=== PATIENT | male | born 1955 | race Caucasian/White ===

== ENCOUNTER 2017-01-12 06:05 | Inpatient (IN) | payer MEDICARE, OTHER, MEDICAID ==
[2017-01-12] VITALS (11 sets, daily range): BP systolic 97–137; BP diastolic 46–74; PULSE 107–119; RESP 25–38; O2SAT 92–100
[~2017-01-12] VITALS: Ht 175.3 cm; Wt 91.4 kg
[~2017-01-12 06:05] MED LIST: ACET650S13 RC; ACET650T50 PO; ATOR20TA PO; BISA10SU61 RC; CALC-881 PO; CLIN-78 PO; DEP500A PO; LACT1CAP26 PO; LIDO700A10 TP; MAGN400O4 PO; MV-M1TAB20 PO; OMEG1CAP25 PO; OXYC-284 PO; OXYC-474 PO; PHEN32.417 PO; RANI150T13 PO; SENN8.6C6 PO; SERT20OR PO; TAMS0.4C98 PO; [UNRECOGNIZED DRUG - CODE] PO; [UNRECOGNIZED DRUG - CODE] PO; [UNRECOGNIZED DRUG - CODE] PO
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
[2017-01-12] MEDS ORDERED: 0.9% Sodium Chloride 1,000 ML IV ONE (06:25)
[2017-01-12 06:27] LABS: BASOPHILS % (AUTO) 0.1 % (0-3); EOSINOPHILS % (AUTO) 0 % (0-5); MONOCYTES % (AUTO) 9.7 % (4-12); Mean Corpuscular Hemoglobin 33.6 pg (27.0-35.0); Mean Corpuscular Volume 98.2 fL (81-100); NEUTROPHILS % (AUTO) 81.9 % (40-74); Platelet Count 233 bil/L (150-400)
[2017-01-12 06:50] LABS: TROPONIN T 0.01 ug/L (0.0-0.011)
[2017-01-12] MEDS ORDERED: Vancomycin Dose per Pharmacist XX ONE (07:30)
[2017-01-12] MEDS ORDERED: levoFLOXacin Inj 750 MG in IV Premix 1 EACH IV ONE (07:30)
[2017-01-12] MEDS ORDERED: Cefepime Inj 2,000 MG in Dextrose 5% Minibag Plus 100 ML IV ONE (07:30)
[2017-01-12] MEDS ORDERED: Vancomycin Inj 1,750 MG in 0.9% Sodium Chloride 500 ML IV ONE (08:05)
[2017-01-12 08:20] LABS: APPEARANCE,URINE HAZY (CLEAR,HAZY); COLOR,URINE DARK YELLOW (YELLOW); OCCULT BLOOD,URINE MODERATE (NEGATIVE); PH,URINE 5.5 (5.0-8.0)
[2017-01-12 08:22] LABS: UROBILINOGEN,URINE NORMAL (NORMAL)
--- NOTE | 2017-01-12 10:33 | DRSVH ---
PROCEDURE: CT ANGIO CHEST PULMONARY EMBOLISM ([id number]) INDICATIONS: Hypoxia, SOB TECHNIQUE: After the administration of intravenous contrast, 2 mm thick sections acquired from the pulmonary api raghu to the posterior costophrenic angles. 3-dimensional maximum intensity projection (MIP) coronal a nd sagittal reformats were then acquired through the thorax. For radiation dose reduction, the follo wing was used: automated exposure control, adjustment of mA and/or kV according to patient size. COMPARISON: [facility], CR, CHEST 1VW (PORTABLE), 04/17/2014, 12:17. [facility], CR, XR CHEST 1VW (PORTABLE), 01/12/2017, 6:17. FINDINGS: Image quality: Suboptimal examination with significant respiratory motion artifacts. Pulmonary arteries: Pulmonary arteries are normal in size, and demonstrate no definitive intralumina l filling defects to suggest central pulmonary embolism. Lungs and pleura: There are bilateral groundglass infiltrates. Bibasilar atelectasis. No pleural eff usions or pneumothorax. Central and peripheral airways are patent. Mediastinum: Heart size is normal, without pericardial effusion. No mediastinal or hilar adenopathy . Thoracic aorta is normal in caliber and enhancement. Esophagus is normal in caliber, without hiat al hernia. Bones and chest wall: No suspicious bony lesions. Ribs and thoracic spine appear intact throughout. Thyroid gland is normal. No axillary or supraclavicular adenopathy. Abdomen: Visualized upper abdominal solid organs appear normal in the early arterial phase of enhanc ement. IMPRESSION: 1. Limited examination due to respiratory motion artifact. No definitive central pulmonary emboli. 2. Bilateral groundglass infiltrates consistent with pneumonitis, pneumonia or pulmonary edema. 3. Bibasilar atelectasis. Dictated by: Jeremiah Mehta M.D. on 01/12/2017 at 10:06 Approved by: Jeremiah Mehta M.D. on 01/12/2017 at 10:32
[2017-01-12] MEDS ORDERED: Alum-Mag Hydrox-Simeth 30 mL Suspension PO PRN ×2 (12:05→15:05)
[2017-01-12] MEDS ORDERED: Ondansetron 2 mg/mL 2 mL Inj IVPUSH PRN ×2 (12:05→15:05)
[2017-01-12] MEDS: 0.9% Sodium Chloride 1,000 ML IV SCH (13:58)
--- NOTE | 2017-01-12 14:43 | DRSVH ---
PROCEDURE: X-RAY CHEST ONE VIEW, PORTABLE ([id number]) INDICATIONS: fever, right sided chest pain, hypoxia TECHNIQUE: One view of the chest was acquired. COMPARISON: [facility], , CHEST 1VW (PORTABLE), 04/17/2014, 12:17. FINDINGS: Surgical changes and devices: Cholecystectomy clips. Lungs and pleura: Lung volumes are low. Perihilar and basilar interstitial and air space opacities n oted, left greater than. No pneumothorax. Mediastinum: Mediastinal contours appear normal. Heart size is normal. Bones and chest wall: No suspicious bony lesions. Overlying soft tissues appear unremarkable. IMPRESSION: Expiratory chest demonstrating bronchovascular crowding and bilateral pulmonary opacities . Developing pulmonary edema and/or bilateral pneumonia cannot be excluded and clinical correlation is recommended. Dictated by: Victorino Ford [facility] Interpreted: Kevan Torrez MD on 01/12/2017 at 9:42 Approved by: Kevan Torrez M.D. on 01/12/2017 at 14:41
[2017-01-12] MEDS ORDERED: Polyethylene Glycol (PEG) 17 Gm Powder PO PRN (15:05)
[2017-01-12] MEDS ORDERED: Cefepime 2,000 mg/100 mL D5W Minibag Plus IV ONE ×2 (15:15)
--- NOTE | 2017-01-12 16:06 | PCM.HPMED ---
Subjective Date of Service Jan 12, 2017 Primary Provider: Admitting Physician: Jaylen Aldana MD Primary Care Physician: Bora Mcdowell MD Attending Physician: Jaylen Aldana MD Admit Status: From the Emergency Department, Full Admit, [facility] Telemetry Chief Complaint: Confusion, fever and right-sided chest pain. History of Present Illness: This is a 61-year-old gentleman with a history of traumatic brain injury who is limited ability to communicate at baseline and today. The patient says of [facility] for the last 9 years, residential facility. He apparently was noted to be less communicative and more lethargic as well as having a fever noting some right sided chest pain. He was brought to the emergency department by ambulance. They noted him to have hypoxia and a fever as well. No further history is obtainable in the emergency department because of the patient's mental status. He was however febrile, noted to have bilateral basal opacities on chest CT consistent with pneumonia, and have evidence of urinary tract infection. He was given antibiotics. The resuscitation was started. He was not hypotensive. The patient is seen on the [place] with mother and father. He is not really able to participate in any way other than given a thumbs up to note understanding of the general labs. They note that he is appropriate for BiPAP if needed fluids and IV antibiotics. They would not want heroic measures, invasive procedures or ICU level care including mechanical ventilation or intubation. Other subjective is not obtainable due to his mental status. Review of Systems: Review of systems is not obtainable due to mental status. Allergies Coded Allergies: Penicillins (Verified Allergy, Unknown, 01/12/17) niacin (Verified Allergy, Unknown, 01/12/17) Home Medications Atorvastatin (Lipitor) 20 Mg Tablet 20 MG PO HS Calcium Carb & Cit/Vitamin D3 (Calcium + Vitamin D3 Caplet) 1 Each Tablet.er 1 EACH PO BID Calcium - Vitamin D3 [id number] BID Clindamycin (Clindamycin) 300 Mg Capsule 300 MG PO QID Divalproex DR (Depakote DR) 500 Mg Tabec 1,000 MG PO BID Swallowed whole without chewing to avoid local irritation of the mouth and throat. Ibuprofen (Ibuprofen Ib) 200 Mg Tablet 600 MG PO TID Lactobacillus Acidophilus (Acidophilus) 1 Each Capsule 2 CAP PO BID Lidocaine (Lidoderm) 700 Mg Adh..patch 1 PATCH TP BID Lidoderm Patch 5% Topically BID to Right Shoulder 12hr on and 12 hr off. Multivitamin (Multiple Vitamins) 1 Each Tablet 1 EACH PO DAILY Mv-Mn/Iron/FA/Herbal Cmplx#190 (Vitamin D3 Complete Caplet) 1 Each Tablet 200 IU PO DAILY Nutritional Supplement (Resource 2.0) 237 Ml Liquid 60 ML PO BID Resource 2.0 Liquid Nutritional suppliement BID. Crum-3 Fatty Acids/Fish Oil (Crum 3 Fish Oil Softgel) 1 Each Capsule.dr 1 EACH PO BID Phenobarbital (Phenobarbital) 32.4 Mg Tablet 48.6 MG PO HS Ranitidine HCl (Zantac) 150 Mg Tablet 150 MG PO DAILY Sennosides (Senna) 8.6 Mg Capsule 3 TAB PO HS Hold for Loose stools Sertraline HCl (Zoloft) 20 Mg/1 Ml Oral.conc 100 MG PO DAILY Tamsulosin (Flomax) 0.4 Mg Capsule 0.4 MG PO HS Scheduled PRN Acetaminophen (Acetaminophen) 650 Mg Tablet.er 650 MG PO Q4 PRN PRN For Pain Acetaminophen (Acetaminophen Suppository) 650 Mg Supp.rect 650 MG RC Q4 PRN PRN For Pain Bisacodyl (Dulcolax Rectal) 10 Mg Supp.rect 10 MG RC DAILY PRN PRN For Constipation Magnesium Hydroxide (Milk of Magnesia) 400 Mg/5 Ml Oral.susp 30 ML PO DAILY PRN PRN For Constipation Oxycodone (Roxicodone) 5 Mg Tablet 7.5 MG PO Q4H PRN PRN For Pain Oxycodone HCl/Acetaminophen 5-325 (Percocet 5-325) 1 Each Tablet 1 EACH PO Q4 PRN PRN For Pain PMH Tramatic brain injury, 30 years ago. Essential hypertension Surgical History Unobtainable Family History Unobtainable due to mental status Social History Occupation: none Hx Alcohol Use: No Hx Substance Use: No Hx Tobacco Use: No Smoking Status: Former Smoker Living Arrangement: [facility] Exam Vital Signs Vital Sign - Last Date Time Temp Pulse Resp B/P Pulse Ox O2 Delivery O2 Flow Rate FiO2 01/12/17 13:24 38.2 119 38 121/73 94 Nasal Cannula 6.00 Intake and Output 01/11/17 01/11/17 01/12/17 Cumulative From/Thru 15:00 23:00 07:00 01/12/17 06:41 - 01/12/17 06:41 Intake Total 1000 ml 1000 ml Balance 1000 ml 1000 ml Intake IV Total 1000 ml 1000 ml Exam Arousable, denies pain. Comfortable. Not really able to speak. Gives thumbs up. Normal skull. Except evidence of previous trauma was some deformity. Normal nose and ears. Anicteric sclera, symmetric pupils Oropharynx is unremarkable, no facial droop. Neck is supple, normal thyroid. No adenopathy. Lungs are clear, normal effort rate. Heart is regular without murmur gallop or rub. Abdomen soft, nondistended or tender. Extremities are free of pedal edema. Good radial and pedal pulses. Skin is free of rash, lesions. No petechiae or ecchymosis. Joints are grossly normal. Cranial nerves are grossly normal. Patient moves all extremities without difficulty.. Normal muscular tone. Lab and Diagnostics Labs White count 21.6. Creatinine is 1.45. BNP is 57. Pro-calcitonin 0.96. Result Diagram: 01/12/17 0000 01/12/17 0000 X-Rays, CTs and MRIs PROCEDURE: CT ANGIO CHEST PULMONARY EMBOLISM ([id number]) INDICATIONS: Hypoxia, SOB TECHNIQUE: After the administration of intravenous contrast, 2 mm thick sections acquired from the pulmonary apices to the posterior costophrenic angles. 3-dimensional maximum intensity projection (MIP) coronal and sagittal reformats were then acquired through the thorax. For radiation dose reduction, the following was used: automated exposure control, adjustment of mA and/or kV according to patient size. COMPARISON: [facility], CR, CHEST 1VW (PORTABLE), 04/17/2014, 12: 17. [facility], CR, XR CHEST 1VW (PORTABLE), 01/12/2017, 6:17. FINDINGS: Image quality: Suboptimal examination with significant respiratory motion artifacts. Pulmonary arteries: Pulmonary arteries are normal in size, and demonstrate no definitive intraluminal filling defects to suggest central pulmonary embolism. Lungs and pleura: There are bilateral groundglass infiltrates. Bibasilar atelectasis. No pleural effusions or pneumothorax. Central and peripheral airways are patent. Mediastinum: Heart size is normal, without pericardial effusion. No mediastinal or hilar adenopathy. Thoracic aorta is normal in caliber and enhancement. Esophagus is normal in caliber, without hiatal hernia. Bones and chest wall: No suspicious bony lesions. Ribs and thoracic spine appear intact throughout. Thyroid gland is normal. No axillary or supraclavicular adenopathy. Abdomen: Visualized upper abdominal solid organs appear normal in the early arterial phase of enhancement. IMPRESSION: 1. Limited examination due to respiratory motion artifact. No definitive central pulmonary emboli. 2. Bilateral groundglass infiltrates consistent with pneumonitis, pneumonia or pulmonary edema. 3. Bibasilar atelectasis. Dictated by: Jeremiah Mehta M.D. on 01/12/2017 at 10:06 Approved by: Jeremiah Mehta M.D. on 01/12/2017 at 10:32 Chest XRay: MPRESSION: Expiratory chest demonstrating bronchovascular crowding and bilateral pulmonary opacities. Developing pulmonary edema and/or bilateral pneumonia cannot be excluded and clinical correlation is recommended. Dictated by: Victorino Ford RRA Interpreted: Kevan Torrez MD on 01/12/2017 at 9: 42 Approved by: Kevan Torrez M.D. on 01/12/2017 at 14:41 Assessment & Plan #. Sepsis, POA and active. SIRS criteria include a white count of 21.6, T38.2 and altered mental status. Source of infection as both a urinary infection as well as a pneumonia. Plan is check lactate, fluid resuscitation and. Parenteral antibiotics to cover empirically. Community-acquired pneumonia, POA versus HCAP. Active. Plan is to cover with broad-spectrum antibiotics and obtain nares for MRSA as well as blood cultures Pyelonephritis, POA and active. Plan is antibiotics and urine culture Hypertension, POA. Plan is to hold usual medications and fluid resuscitate. Patient is DO NOT RESUSCITATE, no intubation or feeding tube. The patient has chosen to eat given an aspiration risk knowing that there is a chance of pneumonia. He is appropriate per family for IV fluids and IV Avelox as well as BiPAP if necessary. He is admitted to inpatient status with a 2 night length of stay is anticipated Resuscitation Status: DNR/DNI:Do Not Resuscitate/Intubate Time spent 40 minutes Kael Wayne MD Jan 12, 2017 16:06
--- NOTE | 2017-01-12 18:20 | NUR ---
Admit note/Febrile Patient alert, nonverbal, able to communicate with hands and occassional words. Patient oriented per sister (Linda SCHAEFER). Temp 38.2 this afternoon, tele SR-ST RR 28-38 min. Patient oriented to soft touch call light, tv. phone and poc but needs assistance and reminders. Q2 hr turns, incont urine and stool but does ask for bedpan and urinal as well. Skin intact with redness in bilat groins, calmoseptine applied PRN.
[2017-01-12] MEDS ORDERED: Acetaminophen IV 1,000 MG in IV Premix 1 EACH IV PRN (22:00)
[2017-01-13] VITALS (9 sets, daily range): BP systolic 117–161; BP diastolic 65–89; PULSE 105–116; RESP 22–28; O2SAT 92–94
[2017-01-13] MEDS: 0.9% Sodium Chloride 1,000 ML IV SCH ×3 (00:20→16:59)
[2017-01-13] MEDS: Cefepime Inj 1,000 MG in Dextrose 5% Minibag Plus 50 ML IV SCH ×3 (00:21→16:59)
[2017-01-13 03:41] LABS: EOSINOPHILS % (AUTO) 0 % (0-5); Mean Corpuscular Hemoglobin 34.5 pg (27.0-35.0); Mean Corpuscular Volume 100.8 fL (81-100); Platelet Count 166 bil/L (150-400)
[2017-01-13 04:20] LABS: BASOPHILS % (AUTO) 0 % (0-3); MONOCYTES % (AUTO) 6 % (4-12); NEUTROPHILS % (AUTO) 81 % (40-74)
--- NOTE | 2017-01-13 04:58 | NUR ---
FEBRILE Patient with fever over night, presenting as tachy, increased needs for O2, and restless. New orders obtained for IV tylenol, which appeared to make him more comfortable. Q2h turns. Had 2BMs. Patient able to communicate his needs via spelling with his fingers and mumbling. Will continue to monitor.
[2017-01-13] MEDS ORDERED: SERT25TA2 PO (11:45)
[2017-01-13] MEDS ORDERED: CALC-72 PO (11:45)
[2017-01-13] MEDS ORDERED: AMLO10TA3 PO (11:45)
[2017-01-13] MEDS ORDERED: LISI10TA PO (11:45)
[2017-01-13] MEDS ORDERED: DEP500A PO (11:45)
[2017-01-13] MEDS ORDERED: SENN-133 PO (11:45)
[2017-01-13] MEDS ORDERED: PHEN64.8 PO (11:45)
[2017-01-13] MEDS ORDERED: ATOR40TA69 PO (11:45)
[2017-01-13] MEDS ORDERED: POLY1DRO BOTH_EYES (11:45)
[2017-01-13] MEDS ORDERED: MULT-1018 PO (11:53)
[2017-01-13] MEDS ORDERED: RANI150T11 PO (11:53)
[2017-01-13] MEDS ORDERED: ACET325T51 PO (11:53)
[2017-01-13] MEDS ORDERED: ACET325C PR (12:02)
--- NOTE | 2017-01-13 13:04 | PCM.PNMED ---
Subjective Date of Service Jan 13, 2017 Subjective The patient is not verbalizing today but does give a thumbs up when asked if she is breathing okay. He also indicates that he feels better and is having no pain. More comprehensive subjective or review systems are not obtainable. Patient is not verbal today. He does have a history of chronic brain injury. Now overnight events noted. Exam Vital Signs Vital Sign - Last Date Time Temp Pulse Resp B/P Pulse Ox O2 Delivery O2 Flow Rate FiO2 01/13/17 10:14 109 01/13/17 08:18 37.8 28 135/65 94 Nasal Cannula 2.50 Intake and Output 01/12/17 01/12/17 01/13/17 Cumulative From/Thru 15:00 23:00 07:00 01/12/17 06:41 - 01/13/17 06:01 Intake Total 981 ml 1264 ml 3245 ml Output Total 1800 ml 1800 ml Balance -819 ml 1264 ml 1445 ml Intake Oral 600 ml 600 ml IV Total 381 ml 1264 ml 2645 ml Output Urine Total 1800 ml 1800 ml Exam Awake, he is fairly comfortable. He does have some tachypnea. Anicteric sclera. Lungs are clear with increased rate and effort. Heart is regular without murmur gallop or rub Abdomen soft nontender, flat Extremities are free of edema. Skin is free of rash or lesions. IVs and Medications Medications Reviewed: Medications were reviewed in detail Lab and Diagnostics Result Diagram: 01/13/17 0325 01/13/17 032 X-Rays, CTs and MRIs PROCEDURE: CT ANGIO CHEST PULMONARY EMBOLISM ([id number]) INDICATIONS: Hypoxia, SOB TECHNIQUE: After the administration of intravenous contrast, 2 mm thick sections acquired from the pulmonary apices to the posterior costophrenic angles. 3-dimensional maximum intensity projection (MIP) coronal and sagittal reformats were then acquired through the thorax. For radiation dose reduction, the following was used: automated exposure control, adjustment of mA and/or kV according to patient size. COMPARISON: [facility], , CHEST 1VW (PORTABLE), 04/17/2014, 12: 17. [facility], , XR CHEST 1VW (PORTABLE), 01/12/2017, 6:17. FINDINGS: Image quality: Suboptimal examination with significant respiratory motion artifacts. Pulmonary arteries: Pulmonary arteries are normal in size, and demonstrate no definitive intraluminal filling defects to suggest central pulmonary embolism. Lungs and pleura: There are bilateral groundglass infiltrates. Bibasilar atelectasis. No pleural effusions or pneumothorax. Central and peripheral airways are patent. Mediastinum: Heart size is normal, without pericardial effusion. No mediastinal or hilar adenopathy. Thoracic aorta is normal in caliber and enhancement. Esophagus is normal in caliber, without hiatal hernia. Bones and chest wall: No suspicious bony lesions. Ribs and thoracic spine appear intact throughout. Thyroid gland is normal. No axillary or supraclavicular adenopathy. Abdomen: Visualized upper abdominal solid organs appear normal in the early arterial phase of enhancement. IMPRESSION: 1. Limited examination due to respiratory motion artifact. No definitive central pulmonary emboli. 2. Bilateral groundglass infiltrates consistent with pneumonitis, pneumonia or pulmonary edema. 3. Bibasilar atelectasis. Dictated by: Jeremiah Mehta M.D. on 01/12/2017 at 10:06 Approved by: Jeremiah Mehta M.D. on 01/12/2017 at 10:32 Chest XRay: MPRESSION: Expiratory chest demonstrating bronchovascular crowding and bilateral pulmonary opacities. Developing pulmonary edema and/or bilateral pneumonia cannot be excluded and clinical correlation is recommended. Dictated by: Victorino Ford [facility] Interpreted: Kevan Torrez MD on 01/12/2017 at 9: 42 Approved by: Kevan Torrez M.D. on 01/12/2017 at 14:41 Assessment & Plan #. Sepsis, POA and improved. SIRS criteria include a white count of 21.6, T38.2 and altered mental status met at time of admit. Source of infection as both a urinary infection as well as a pneumonia. Continue IVF as well as empiric antibiotics. #. Probable aspiration pneumonia, POA AND ACTIVE. Active. Plan is to cover with broad-spectrum antibiotics (cefepime) . Nares MRSA negative. #. Pyelonephritis, POA and active. Plan is antibiotics and urine culture reveals E. coli with sensitivities pending. #. Hypertension, POA and stable. Plan is to hold usual medications and fluid resuscitate. #. Remote traumatic brain injury, POA and stable. Patient is DO NOT RESUSCITATE, no intubation or feeding tube. The patient has chosen to eat given an aspiration risk knowing that there is a chance of pneumonia. He is appropriate per family for IV fluids and IV Avelox as well as BiPAP if necessary. He is admitted to inpatient status with a 2 night length of stay is anticipated Resuscitation Status: DNR/DNI:Do Not Resuscitate/Intubate Kael Wayne MD Jan 13, 2017 13:04
--- NOTE | 2017-01-13 13:36 | NUR ---
Social Work: Initial Assessment/Multidisciplinary Rounds D: Per EMR review, pt is a 61 year old non-verbal, male admitted for Sepsis. Pt is Medicare with [employer] Supplement; Pt has no LTC insurance or VA benefits. PCP is Bora Mcdowell MD. NOK is Linda Burdick, sister [phone]. Advanced directives completed and on file. Readmit score is high, 4/8. Pt discussed in multidisciplinary rounds; pt is a 9 year resident at [facility]. Pt is almost totally dependent for care and has no capacity for self-care. [employer] spoke with Shyla Gutierrez membership coordinator at [facility]. She states that the patient is w/c bound at baseline and requires 1PA for transfers. Pt requires almost total assistance for ADLs except for feeding. They are able to accept the patient back when he is medically stable; they are requesting access to follow along with care. [employer] will provide access once attending provider places CM order for SNF placement. t/c to the patient's sister/DPOA to complete initial assessment. Sw role explained, contact information provided and discharge planning checklist left at bedside. She confirms the aforementioned information is correct and that she intends for the patient to return to [facility]. She has no concerns about his care. A: Pt who is almost totally dependent for care at [facility]. P: Anticipate pt to discharge back to [facility] once he is medically stable; [employer] to continue to follow to assess for unmet discharge needs. RAYMOND Rodriguez Addendum: 01/13/17 at 1342 by MAC MICHELE Amended: Links added.
--- NOTE | 2017-01-13 14:19 | PCM.ADCARE ---
Advance Care Planning Note Purpose of Encounter: To delineate level of care and resuscitation wishes. Parties in Attendance: Mother and father Decisional Capacity: The patient is decisional at baseline per the report but because of acute encephalopathy is not decisional or able to participate at the time of this conversation. Subjective: The patient is nonverbal at the time of admission because of acute encephalopathy. Objective: He appears to be comfortable but is tachypneic. Lungs are clear with increased rate and effort. Heart is regular without murmur Abdomen soft. Extremities are free of edema. Goals of Care Determinations: DO NOT RESUSCITATE DO NOT INTUBATE No invasive procedures IV fluids, IV antibiotics, typical medical care, and noninvasive ventilation are all permissible. Plan: DNR/DNI. BiPAP if needed We will continue with IV antibiotics and IV fluids for fluid resuscitation. Patient has clearly stated in the past that he will not use a feeding tube and will continue to eat in spite of knowing he has an aspiration risk and a chance of adverse outcome from aspiration pneumonia. CODE STATUS: DO NOT RESUSCITATE Time Spent Adv.Care Plannin minutes Adv. Care Plan Documenation: As above Kael Wayne MD Jan 13, 2017 14:19
--- NOTE | 2017-01-13 17:32 | NUR ---
spiritual care: pt request caring visit/conversational. Pt eloisa shared basics about pt's abilities. Though non verbal, she said he understands all and favors rt side for hearing. Pt responded with thumbs up and pointing in simple conversation. Pt agreeable for eucharistic visitors during his hospital stay.
[2017-01-14] VITALS (9 sets, daily range): BP systolic 133–166; BP diastolic 73–85; PULSE 75–111; RESP 20–28; O2SAT 89–96
[2017-01-14] MEDS ORDERED: CEFEPIME IV SCH (00:30)
[2017-01-14] MEDS ORDERED: DEXTROSE 5% IV SCH (00:30)
[2017-01-14] MEDS: 0.9% Sodium Chloride 1,000 ML IV SCH ×3 (00:35→21:51)
--- NOTE | 2017-01-14 05:40 | NUR ---
Resp/Mentation Patient did well on 2.5L O2 via NC this shift, sats remained in the low 90's this shift, resting well this AM, incontinent of urine and stool multiple times, communicating with hand gestures this shift, no distress noted, slight increase of breathing with turns but resting and calm within a few minutes, oral temp WNL but slight increased temp auxiliary, skin hot to touch, will continue to monitor, receiving NS @100ml/hr. Addendum: 01/14/17 at 0545 by DELIO GASPAR RN Amended: Links added.
--- NOTE | 2017-01-14 09:55 | CONS ---
[address] [address] CONSULTATION REPORT PATIENT: DANA ARENAS : 1955 MR#: [id number] ADMIT: 01/12/2017 JOB ID: [id number] DATE OF SERVICE: 01/14/2017 INFECTIOUS DISEASE CONSULTATION: I thank Dr. Berkowitz for this timely consult. REASON FOR CONSULTATION: Complicated ESBL urinary tract infection in a correction resident. HISTORY OF PRESENT ILLNESS: The patient is an unfortunate 61-year-old gentleman who about 40 years ago suffered a severe traumatic brain injury which left him wheelchair bound and aphasic. Despite that though, he is able to carry on conversation through use of hand signals and is clearly able to comprehend speech and get around and stated that he even enjoys going to the casino on occasion. He has been, however, living at [facility] for the past nine years or so and has been doing relatively well there in spite of his neurologic handicaps. On or about January 09, it was noticed that the patient had a decrease in his baseline mental status as well as the onset of some fevers. Over the weekend, the patient's situation deteriorated with declining mental status as well as ongoing fevers, and for that reason, he was transferred to this facility and admitted on January 12. Large workup of his fevers commenced which included, of course, blood and urine cultures as well as pulmonary imaging and other studies. His radiographs demonstrated some bilateral infiltrates which may have been CHF or infection, but more importantly, his urine demonstrated heavy pyuria as well as growth of a highly resistant organism and for this reason ID has been consulted today. This morning when we see the patient he is awake, smiling at times and quite jovial. He communicates through facial expressions, thumbs up sign and other nonverbal means as he does not speak. He denies any ongoing distress. Says he is more short of breath than baseline and has some minimally productive cough. He denies chest pain. However, he has no abdominal complaints and denies urinary symptoms. The history is, of course, a bit difficult to take in view of his speech issues. PAST MEDICAL HISTORY: 1. Traumatic brain injury 40 years ago. Now wheelchair bound but able to urinate on his own. 2. Seizure disorder. 3. Hyperlipidemia. 4. Hypertension. 5. History of depression. 6. 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 SOCIAL HISTORY: The patient has lived at [facility] for the past nine years. He does not smoke or drink. He does go to the [employer] on an occasional basis. FAMILY HISTORY: Unknown. REVIEW OF SYSTEMS: Was done but is a bit limited because of his speech issues. At this point, he denies headache, sore throat. He does have a minimally productive cough and some shortness of breath without pleuritic chest pain. No nausea, vomiting, diarrhea. No urinary symptoms. Remainder of the review of systems negative. PHYSICAL EXAMINATION: The patient is currently afebrile and smiling at times communicating by hand gestures. His temperature is 38.2 during the night and on admission it was 39.2, but rapidly improved. Yesterday, however, at noon he was also again 39.2. His pulse is 107, respiratory rate 24, blood pressure 158/73, saturating around 90% on 2 L. He is in no acute distress. Head without current trauma. Multiple scars on the patient's scalp related to his traumatic brain injury four decades ago. Eyes are clear without conjunctivitis or scleral icterus. Nose appears normal. Oral cavity with a coated tongue. The patient is edentulous. His lungs, we were able to with difficulty to sit the patient up briefly. He has rales about a third to half of the way up bilaterally with some scattered wheezes. I do not hear focality in his lung examination but it is grossly abnormal bilaterally. Cardiac tones: Regular rate and rhythm without significant murmur. The patient's abdomen is slightly distended, but soft and nontender. He does not have a Andrade catheter at this point. No suprapubic tenderness. No cervical or inguinal adenopathy is noted. His extremities are somewhat wasted without edema, without synovitis and without any cellulitis. His lower extremities are grossly weak as compared to his upper extremities but he is capable of 3/3 or 4/5 strength in his lower extremities and he is able to get up and transfer though he has problems with frequent falls. Remainder of the physical examination unremarkable aside the fact the patient, of course, is aphasic. LABORATORIES: Include white count 21,000 on admission yesterday, 17,000 today. It is not repeated. There was a considerable left shift, 7% band forms. Creatinine 1.25. LFTs are normal. Albumin 3.2. Procalcitonin 0.96. Urinalysis greater than 50 white cells in the urine, is growing an ESBL E coli which is basically only sensitive to carbapenems. It is listed as intermediate to amoxicillin clavulanate but we know from the literature that would not work. The cefepime DARRYN is not listed but we know from the recent article in Clinical Infectious Disease that cefepime is inadequate therapy for these and will not succeed if tried. Note that he is currently receiving cefepime. His blood cultures are negative. IMAGING: Was carefully reviewed on the view screen. His chest x-ray shows possible pulmonary edema. We carefully reviewed his CT scan of the chest. It shows completely symmetrical extensive bilateral ground-glass infiltrates which I would be inclined to attribute to pulmonary edema or CHF at first glance. It is possible, of course, that this represents some interstitial pneumonitis or perhaps even a very atypical infection but one would have to think based on the appearance of this CT scan as well as his auscultation that he is simply in fluid overload or heart failure. IMPRESSION: This is an unfortunate 61-year-old gentleman who currently lives in a snf facility secondary to sequela of a traumatic brain injury 40 years ago. He is now admitted with altered mental status, high fevers and pyuria. His urine culture is growing an extremely resistant ESBL E. coli organism which really has no therapeutic options beyond carbapenems or perhaps the new combination cephalosporin agents. RECOMMENDATIONS: 1. Will discontinue cefepime. 2. Will start ertapenem 1 g once a day immediately. 3. I would anticipate a total course of ertapenem about 10 days and we will not have an oral option here at all so the patient will need 10 days of IV ertapenem regardless. 4. Echocardiogram has been ordered. 5. I would not institute a big pulmonary workup regarding these bilateral infiltrates. until we get a look at his echo as I suspect this is fluid overload or CHF. 6. Will continue to follow this interesting patient with you. 7. Also note that ertapenem does lower seizure threshold as do all carbapenems. Ertapenem lowering of the seizure threshold is less than imipenem but not 0 and the patient will need to be closely observed during this period of ertapenem therapy. Due to the lack of therapeutic options here, I think our best course was to proceed with the ertapenem and watch this patient closely. 8. It is reasonable also to get a renal ultrasound at this juncture to make sure there is no obstruction given the patient's complicated urinary tract infection.
[2017-01-14] MEDS: Ertapenem Inj 1,000 MG in 0.9% Sodium Chloride 50 ML IV SCH (11:12)
--- NOTE | 2017-01-14 11:36 | NUR ---
NUTRITION ASSESSMENT: ASSESS: Pt is a 61yo M admitted for altered mental status, high fevers and pyuria. Pt has history of TBI and is aphasic. He has been NPO x2 days. ST eval was requested this am and is currently pending. PMHX: TBI, HTN LABS: Reviewed. Glu 107, Ca 7.8, Alb 3.2 MEDS: Reviewed. GI: BMx2 01/14 SKIN: no major issues CURRENT WTS: 91.4kg, BMI 29.8kg/m2, admit wt 86kg DIET: NPO x2 EST. NEEDS: Kcals: 2285-2740kcal/day (25-30kcal/kg) Pro: 90-110g/day (1.0-1.2g/kg) NUTRITION DIAGNOSIS: 1.) Inadequate oral intake related to decreased ability to consume sufficient energy as evidenced by current NPO status NUTRITION INTERVENTION: 1.) Will monitor NPO status. Recommend advance diet per ST. MONITOR / EVAL: NPO, gi, wt, labs, ST, POC, nutrition status, Will continue to monitor per moderate nutrition risk guidelines
--- NOTE | 2017-01-14 11:56 | DRSVH ---
PROCEDURE: US RENAL SONOGRAM INDICATIONS: complicated UTI TECHNIQUE: Real-time scanning was performed of the kidneys and bladder, with image documentation. COMPARISON: None. FINDINGS: Kidneys: Kidneys are normal in size. Right kidney measures 9.1 cm long; left kidney measures 10.2 c m long. Right renal cortical thickness is 1.6 cm; left renal cortical thickness is 1.4 cm. Renal co rtical echotexture is normal. No hydronephrosis or nephrolithiasis. No suspicious solid mass lesion s. Bladder: Pre-void bladder volume is 230 mL. Post-void residual is also 230 mL. Pre-void images dem onstrate no intraluminal masses or stones. On pre-void images, bilateral ureteral jets are noted wit h color Doppler interrogation. (Of note, ureteral jets may not be detectable in up to 25% of cases d ue to insufficient differences in specific gravity between ureteral and bladder urine). Miscellaneous: No free pelvic fluid. IMPRESSION: No hydronephrosis or nephrolithiasis identified but there is relatively poor quality visu alization of the kidney collecting system bilaterally due to patient inability to fully cooperate wit h the examination. The prevoid bladder volume is 230 cc and the patient was unable to void. No mass or calcification within the bladder is identified. Dictated by: Kevan Torrez M.D. on 01/14/2017 at 11:53 Approved by: Kevan Torrez M.D. on 01/14/2017 at 11:54
--- NOTE | 2017-01-14 11:59 | NUR ---
Evaluation completed. Please go to "Notes" then click on "Assessments and Notes" (bottom left corner of screen). Then select appropriate discipline tab on top of screen.
--- NOTE | 2017-01-14 12:26 | PCM.PNMED ---
Subjective Date of Service Jan 14, 2017 Subjective Patient of note is nonverbal but will be able to answer yes and no questions and [id number] is at bedside help with communication. Is she relates he understands everything that is said. Exam Vital Signs Vital Sign - Last Date Time Temp Pulse Resp B/P Pulse Ox O2 Delivery O2 Flow Rate FiO2 01/14/17 10:00 110 01/14/17 07:50 Supplement Oxygen 01/14/17 07:46 37.2 24 158/73 89 2.50 Intake and Output 01/13/17 01/13/17 01/14/17 Cumulative From/Thru 15:00 23:00 07:00 01/12/17 06:41 - 01/14/17 05:26 Intake Total 791 ml 1040 ml 5076 ml Output Total 1800 ml Balance 791 ml 1040 ml 3276 ml Intake Oral 0 ml 0 ml 600 ml IV Total 791 ml 1040 ml 4476 ml Output Urine Total 1800 ml # Voids 6 5 4 15 # Bowel Movements 1 1 2 4 Exam Constitutional: Middle-aged male in no acute distress Head: Normocephalic atraumatic Chest: Decreased breath sounds at his bases Cor: Regular rate and rhythm S1-S2 Abdomen: Soft nontender bowel sounds present Extremities: Trace bilateral pedal edema Neuro: He is alert and oriented 3, does slowly move all extremities IVs and Medications Medications Reviewed: Medications were reviewed in detail Lab and Diagnostics Result Diagram: 01/13/17 0325 01/13/17 032 X-Rays, CTs and MRIs PROCEDURE: CT ANGIO CHEST PULMONARY EMBOLISM ([id number]) INDICATIONS: Hypoxia, SOB TECHNIQUE: After the administration of intravenous contrast, 2 mm thick sections acquired from the pulmonary apices to the posterior costophrenic angles. 3-dimensional maximum intensity projection (MIP) coronal and sagittal reformats were then acquired through the thorax. For radiation dose reduction, the following was used: automated exposure control, adjustment of mA and/or kV according to patient size. COMPARISON: [facility], CR, CHEST 1VW (PORTABLE), 04/17/2014, 12: 17. [facility], , XR CHEST 1VW (PORTABLE), 01/12/2017, 6:17. FINDINGS: Image quality: Suboptimal examination with significant respiratory motion artifacts. Pulmonary arteries: Pulmonary arteries are normal in size, and demonstrate no definitive intraluminal filling defects to suggest central pulmonary embolism. Lungs and pleura: There are bilateral groundglass infiltrates. Bibasilar atelectasis. No pleural effusions or pneumothorax. Central and peripheral airways are patent. Mediastinum: Heart size is normal, without pericardial effusion. No mediastinal or hilar adenopathy. Thoracic aorta is normal in caliber and enhancement. Esophagus is normal in caliber, without hiatal hernia. Bones and chest wall: No suspicious bony lesions. Ribs and thoracic spine appear intact throughout. Thyroid gland is normal. No axillary or supraclavicular adenopathy. Abdomen: Visualized upper abdominal solid organs appear normal in the early arterial phase of enhancement. IMPRESSION: 1. Limited examination due to respiratory motion artifact. No definitive central pulmonary emboli. 2. Bilateral groundglass infiltrates consistent with pneumonitis, pneumonia or pulmonary edema. 3. Bibasilar atelectasis. Dictated by: Jeremiah Mehta M.D. on 01/12/2017 at 10:06 Approved by: Jeremiah Mehta M.D. on 01/12/2017 at 10:32 Chest XRay: MPRESSION: Expiratory chest demonstrating bronchovascular crowding and bilateral pulmonary opacities. Developing pulmonary edema and/or bilateral pneumonia cannot be excluded and clinical correlation is recommended. Dictated by: Victorino Ford [facility] Interpreted: Kevan Torrez MD on 01/12/2017 at 9: 42 Approved by: Kevan Torrez M.D. on 01/12/2017 at 14:41 Assessment & Plan #. Sepsis, POA and improved. SIRS criteria include a white count of 21.6, T38.2 and altered mental status met at time of admit. Source of infection as both a urinary infection as well as a pneumonia. Continue IVF as well as empiric antibiotics. -Appreciate infectious disease consultation. Patient is found on urine culture to have Escherichia coli ESBL and has been changed to IV ertapenem. #. Probable aspiration pneumonia, POA AND ACTIVE. Active. Plan is to cover with broad-spectrum antibiotics (cefepime) . Nares MRSA negative. Currently on IV ertapenem as above which will cover aspiration pneumonia. #. Pyelonephritis, POA and active. Plan is antibiotics and urine culture reveals E. coli with sensitivities pending. Change to IV ertapenem as it is ESBL Escherichia coli. -Appreciate infectious disease consult #. Hypertension, POA and stable. Plan is to hold usual medications and fluid resuscitate. #. Remote traumatic brain injury, POA and stable. Patient is DO NOT RESUSCITATE, no intubation or feeding tube. The patient has chosen to eat given an aspiration risk knowing that there is a chance of pneumonia. He is appropriate per family for IV fluids and IV Avelox as well as BiPAP if necessary. He is admitted to inpatient status with a 2 night length of stay is anticipated Resuscitation Status: DNR/DNI:Do Not Resuscitate/Intubate Time spent 30 minutes Fiordaliza Berkowitz MD Jan 14, 2017 12:26
--- NOTE | 2017-01-14 17:04 | DRSVH ---
[facility] [address] [place] [address] Echocardiogram Report Name: DANA ARENAS JStudy Date: 01/14/2017 Height: 69 in Hospital Exam Location: [facility] Weight: 201 lb Gender: Male BSA: 2.1 m2 : 1955 Age: 61 yrs BP: 158/73 mm Hg Reason For Study: CHF Ordering Physician: SUSANIST [facility] Performed By: Amber Corado Referring Physician: Edin Amador Interpretation Summary The ejection fraction is estimated to be 55-60%. There is no significant valvular heart disease. Procedure: A two-dimensional transthoracic echocardiogram with color flow and Doppler was performed. There is no prior echocardiogram noted for this patient. Technically difficult echocardiogram due to limited patient mobility and positioning. Most of the acoustic windows were suboptimal, but the best imaging was obtained from the parasternal window. The apical views were difficult to obtain and are suboptimal in quality. The subcostal views were difficult to obtain and are suboptimal in quality. The patient was in normal sinus rhythm during the exam. Left Ventricle: The left ventricle is normal in size. Proximal septal thickening is noted. Left ventricular wall thickness is mildly increased. The ejection fraction is estimated to be 55-60%. Right Ventricle: The right ventricle is grossly normal size. The right ventricular systolic function is normal. Atria: The left atrium grossly appears normal in size. The right atrium grossly appears normal in size. Mitral Valve: The mitral valve is normal in structure and function. There is trace mitral regurgitation. Aortic Valve: The aortic valve is trileaflet. The aortic valve opens well. No aortic regurgitation is present. Tricuspid Valve: The tricuspid valve is normal in structure and function. There is trace tricuspid regurgitation. Pulmonary artery pressures cannot be estimated because of the lack of a measurable TR jet velocity. Pulmonic Valve: The pulmonic valve is normal in structure and function. There is a trace or physiologic amount of pulmonic regurgitation. Great Vessels: The aortic root is normal size. The ascending aorta is normal in size. The inferior vena cava was not visualized. Pericardium/ Pleura There is no pericardial effusion. There is no pleural effusion. MMode/2D Measurements & Calculations LVIDd LVOT diam: 2.3 cm LV sanders. diameter/BSA LV sys. diameter/BSA : 4.3 cm asc Aorta Diam (cm/m^2): 2.1 (cm/m^2): 1.5 LVIDs : 3.0 cm Ao Arch Diam (Prox FS Trans): 3.1 cm : 29.% IVSd : 1.cm LVPWd : 1.2 cm TAPSE : 2.3 cm Doppler Measurements & Calculations Ao V2 max MV E max dom MV E/A: 0.59 Ao V2 mean : 130.2 cm/sec : 55.9 cm/sec Med Peak E' Dom : 83.0 cm/sec Ao max PG MV A max dom Ao V2 VTI : 6.8 mmHg : 94.3 cm/sec E/E' med: 8.5 Ao mean PG Lat Peak E' Dom FARAZ(V,D) LVOT Max Dom E/E' lat: 6.9 : 3.7 cm2 : 113.0 cm/sec E/e' average: 7.7 FARAZ(I,D): 3.7 cm sev ratio LV V1 max PG FARAZ indexed to BSA (cm^2/m^2): 1.8 LV V1 VTI: 16.2 cm Electronically signed by: Glenn Peres on Reading Physician:01/14/2017 11:50 AM
--- NOTE | 2017-01-14 17:35 | NUR ---
Febrile/Resp Patient nonverbal at baseline, but able to communicate with hands and spelling. Lungs course with wheezes and rhonci bilat, moist weak cough. Patient glen stim diet well with 1:1 feeding. Freq oral care done today. Temp 38.9 oral, Tylenol po given x 1. Incont urine and stool this shift. Patient placed in contact isolation and family given info on isolation type and protocol. Tele -ST 90-110's.
[2017-01-15] VITALS (7 sets, daily range): BP systolic 130–161; BP diastolic 75–85; PULSE 87–93; RESP 20–26; O2SAT 92–95
--- NOTE | 2017-01-15 06:42 | NUR ---
Respiratory/Diet Patient on 3L with nasal cannula at beginning of shift. Coarse breath sounds throughout with expiratory wheezes. SpO2 dropped to 86% as patient slept; patient noted to be mouth breathing. Nasal cannula switched for oxymask at 3L; SpO2 improved to mid-90s. Patient taking PO; stim diet 1:1 feeding. Tolerating well with moderate appetite.
[2017-01-15 08:46] LABS: BASOPHILS % (AUTO) 0.4 % (0-3); EOSINOPHILS % (AUTO) 1.5 % (0-5); MONOCYTES % (AUTO) 12.5 % (4-12); Mean Corpuscular Hemoglobin 33.6 pg (27.0-35.0); Mean Corpuscular Volume 98.1 fL (81-100); NEUTROPHILS % (AUTO) 71.2 % (40-74); Platelet Count 172 bil/L (150-400)
[2017-01-15] MEDS: Ertapenem Inj 1,000 MG in 0.9% Sodium Chloride 50 ML IV SCH (08:47)
[2017-01-15] MEDS: 0.9% Sodium Chloride 1,000 ML IV SCH (08:48)
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
[2017-01-15] MEDS ORDERED: Furosemide 10 mg/mL 2 mL Inj IVPUSH ONE (10:20)
--- NOTE | 2017-01-15 10:47 | NUR ---
Rounds 1000 notified that pt's lungs coarse with lower trending sats over past few days. Elevated BNP on 01/12 and current fluid rate NS 100ml/hr. RR 26 this am. 3L oxymask. reviewed. 20mg lasix iv given. Explained purpose and goals to pt. Will monitor. Sats currently 93% on 3LNC. on CPOX.
--- NOTE | 2017-01-15 13:37 | PCM.PNMED ---
Subjective Date of Service Jan 15, 2017 Subjective Patient is not very verbal but when asked how he is doing and gave a thumbs up. Exam Vital Signs Vital Sign - Last Date Time Temp Pulse Resp B/P Pulse Ox O2 Delivery O2 Flow Rate FiO2 01/15/17 12:34 37.5 92 22 136/75 94 OxyMask 3.00 Intake and Output 01/14/17 01/14/17 01/15/17 Cumulative From/Thru 15:00 23:00 07:00 01/12/17 06:41 - 01/15/17 05:42 Intake Total 1306 ml 1243 ml 7625 ml Output Total 1800 ml Balance 1306 ml 1243 ml 5825 ml Intake Oral 168 ml 0 ml 768 ml IV Total 1138 ml 1243 ml 6857 ml Output Urine Total 1800 ml # Voids 3 2 20 # Bowel Movements 2 0 6 Exam Constitutional: Middle-aged male in no acute distress Head: Normocephalic atraumatic Chest: Does reveal some scattered rhonchi diffusely Cor: Regular rate and rhythm S1-S2 Abdomen: Soft nontender bowel sounds present Extremities: There is bilateral pedal edema IVs and Medications Medications Reviewed: Medications were reviewed in detail Lab and Diagnostics Laboratory Tests 72 Hours Test 01/13/17 03:25 01/15/17 08:39 White Blood Count 17.3th/mm3 (3.8-10.1) 7.5th/mm3 (3.8-10.1) Red Blood Count 3.83mil/mm3 (4.40-5.80) 3.72mil/mm3 (4.40-5.80) Hemoglobin 13.2g/dL (13.8-17.2) 12.5g/dL (13.8-17.2) Hematocrit 38.6% (41.0-50.0) 36.5% (41.0-50.0) Mean Corpuscular Volume 100.8fL (81-100) 98.1fL (81-100) Mean Corpuscular Hemoglobin 34.5pg (27.0-35.0) 33.6pg (27.0-35.0) Mean Corpuscular Hemoglobin Concent 34.2% (32.0-37.0) 34.2% (32.0-37.0) Red Cell Distribution Width 13.9% (12.3-15.4) 14.4% (12.3-15.4) Platelet Count 166bil/L (150-400) 172bil/L (150-400) Neutrophils (%) (Auto) 81% (40-74) 71.2% (40-74) Lymphocytes (%) (Auto) 6% (14-46) 13.1% (14-46) Monocytes (%) (Auto) 6% (4-12) 12.5% (4-12) Eosinophils (%) (Auto) 0% (0-5) 1.5% (0-5) Basophils (%) (Auto) 0% (0-3) 0.4% (0-3) Band Neutrophils % 7% (1-5) Sodium Level 142mEq/L (134-144) 146mEq/L (134-144) Potassium Level 4.3mEq/L (3.5-5.2) 3.8mEq/L (3.5-5.2) Chloride Level 106mEq/L (97-108) 111mEq/L (97-108) Carbon Dioxide Level 19mmol/L (18-29) 20mmol/L (18-29) Blood Urea Nitrogen 23mg/dL (6-24) 24mg/dL (6-24) Creatinine 1.25mg/dL (0.76-1.27) 0.91mg/dL (0.76-1.27) Estimat Glomerular Filtration Rate 63mL/min (>59) 91mL/min (>59) Glucose Level 107mg/dL (60-99) 87mg/dL (60-99) Calcium Level 7.8mg/dL (8.5-10.1) 8.0mg/dL (8.5-10.1) Total Bilirubin 0.4mg/dL (0.0-1.2) 0.2mg/dL (0.0-1.2) Aspartate Amino Transf (AST/SGOT) 29U/L (0-50) 280U/L (0-50) Alanine Aminotransferase (ALT/SGPT) 15U/L (0-44) 102U/L (0-44) Alkaline Phosphatase 78U/L (25-160) 92U/L (25-160) Total Protein 5.3g/dL (6.4-8.4) 5.3g/dL (6.4-8.4) Albumin 3.2g/dL (3.4-5.0) 2.8g/dL (3.4-5.0) Result Diagram: 01/15/17 0839 01/15/17 0839 X-Rays, CTs and MRIs PROCEDURE: CT ANGIO CHEST PULMONARY EMBOLISM ([id number]) INDICATIONS: Hypoxia, SOB TECHNIQUE: After the administration of intravenous contrast, 2 mm thick sections acquired from the pulmonary apices to the posterior costophrenic angles. 3-dimensional maximum intensity projection (MIP) coronal and sagittal reformats were then acquired through the thorax. For radiation dose reduction, the following was used: automated exposure control, adjustment of mA and/or kV according to patient size. COMPARISON: [facility], , CHEST 1VW (PORTABLE), 04/17/2014, 12: 17. [facility], , XR CHEST 1VW (PORTABLE), 01/12/2017, 6:17. FINDINGS: Image quality: Suboptimal examination with significant respiratory motion artifacts. Pulmonary arteries: Pulmonary arteries are normal in size, and demonstrate no definitive intraluminal filling defects to suggest central pulmonary embolism. Lungs and pleura: There are bilateral groundglass infiltrates. Bibasilar atelectasis. No pleural effusions or pneumothorax. Central and peripheral airways are patent. Mediastinum: Heart size is normal, without pericardial effusion. No mediastinal or hilar adenopathy. Thoracic aorta is normal in caliber and enhancement. Esophagus is normal in caliber, without hiatal hernia. Bones and chest wall: No suspicious bony lesions. Ribs and thoracic spine appear intact throughout. Thyroid gland is normal. No axillary or supraclavicular adenopathy. Abdomen: Visualized upper abdominal solid organs appear normal in the early arterial phase of enhancement. IMPRESSION: 1. Limited examination due to respiratory motion artifact. No definitive central pulmonary emboli. 2. Bilateral groundglass infiltrates consistent with pneumonitis, pneumonia or pulmonary edema. 3. Bibasilar atelectasis. Dictated by: Jeremiah Mehta M.D. on 01/12/2017 at 10:06 Approved by: Jeremiah Mehta M.D. on 01/12/2017 at 10:32 Chest XRay: MPRESSION: Expiratory chest demonstrating bronchovascular crowding and bilateral pulmonary opacities. Developing pulmonary edema and/or bilateral pneumonia cannot be excluded and clinical correlation is recommended. Dictated by: Victorino Ford RRA Interpreted: Kevan Torrez MD on 01/12/2017 at 9: 42 Approved by: Kevan Torrez M.D. on 01/12/2017 at 14:41 Cardiac Echo Impressions Name: DANA ARENAS JStudy Date: 01/14/2017 Height: 69 in Hospital Exam Location: [facility] Weight: 201 lb Gender: Male BSA: 2.1 m2 : 1955 Age: 61 yrs BP: 158/73 mm Hg Reason For Study: CHF Ordering Physician: NICOLE [facility] Performed By: Amber Corado Referring Physician: Edin Amador Interpretation Summary The ejection fraction is estimated to be 55-60%. There is no significant valvular heart disease. Assessment & Plan #. Sepsis, POA and improved. SIRS criteria include a white count of 21.6, T38.2 and altered mental status met at time of admit. Source of infection as both a urinary infection as well as a pneumonia. Continue IVF as well as empiric antibiotics. -Appreciate infectious disease consultation. Patient is found on urine culture to have Escherichia coli ESBL and has been changed to IV ertapenem. #Possible fluid overload, acute, not present on admission -We will go ahead and give a dose of IV Lasix and DC his IV fluids -History x-ray did show some pulmonary edema -Echocardiogram report is essentially normal #. Probable aspiration pneumonia, POA AND ACTIVE. Active. Plan is to cover with broad-spectrum antibiotics. Nares MRSA negative. Currently on IV ertapenem as above which will cover aspiration pneumonia. #. Pyelonephritis, POA and active. Plan is antibiotics and urine culture reveals E. coli with sensitivities pending. Change to IV ertapenem as it is ESBL Escherichia coli. -Appreciate infectious disease consult -Patient will be able to go back to [facility] on IV ertapenem for a total of 10 days. We will arrange this when patient is medically stable. #. Hypertension, POA and stable. Plan is to hold usual medications and fluid resuscitate. #. Remote traumatic brain injury, POA and stable. Patient is DO NOT RESUSCITATE, no intubation or feeding tube. The patient has chosen to eat given an aspiration risk knowing that there is a chance of pneumonia. He is appropriate per family for IV fluids and IV Avelox as well as BiPAP if necessary. He is admitted to inpatient status with a 2 night length of stay is anticipated VTE Mechanical Devices: Intermittant Pneumatic CD Resuscitation Status: DNR/DNI:Do Not Resuscitate/Intubate Time spent 30 minutes Fiordaliza Berkowitz MD Jan 15, 2017 13:37
--- NOTE | 2017-01-15 14:31 | NUR ---
spiritual care: follow pt agreeable for eucharistic visitor.
--- NOTE | 2017-01-15 17:16 | NUR ---
Social Work: Continued Discharge Planning/Multidisciplinary Rounds D: Pt discussed in multidisciplinary rounds; the patient is not medically stable for discharge at this time. The patient will require 10 days of IV abx and this will need to be coordinated with [facility]. Provider has placed CM order. DESCRIPTIVE CATALOG LIBRARIAN acknowledges order. DESCRIPTIVE CATALOG LIBRARIAN left message for Shyla Gutierrez with [facility] to notify of the pt's need for IV ABX. A: Pt who is a LTC resident at [facility]. P: Anticipate pt to return to [facility] with Dr. Sunshine to follow; DESCRIPTIVE CATALOG LIBRARIAN to confirm with [facility] that they can accept the patient with the IV ABX. RAYMOND Rodriguez
--- NOTE | 2017-01-15 23:34 | NUR ---
Rec'd orders from Dr. Kam to [place] [facility] V[place], no LOC changes, continues on IV abx for sepsis/possible pneumonia. Report given to Shannan Doll RN. Pt and belongings taken to floor at 2300.
[2017-01-16 04:50] VITALS: BP 137/73; PULSE 88; RESP 23; O2SAT 93
[2017-01-16 05:38] LABS: BASOPHILS % (AUTO) 0.3 % (0-3); EOSINOPHILS % (AUTO) 1.8 % (0-5); MONOCYTES % (AUTO) 15.2 % (4-12); Mean Corpuscular Hemoglobin 33.5 pg (27.0-35.0); Mean Corpuscular Volume 97.2 fL (81-100); NEUTROPHILS % (AUTO) 62.6 % (40-74); Platelet Count 211 bil/L (150-400)
[2017-01-16 05:46] VITALS: PULSE 86
--- NOTE | 2017-01-16 06:32 | NUR ---
[place] [facility] [place] arrived [place] at 2300 via bed from [facility] with all personal belongings. Pt bedrest. Q turns during the night. Soft call light within reach, using appropriately. Bed locked, lowest level. Pt is nonverbal uses hand signs and writing to answer/ask questions. Denies n/v, or SOB. No complaints of pain or discomfort. Frequent rounding in place. Pleasant and cooperative with care.
[2017-01-16] MEDS: Ertapenem Inj 1,000 MG in 0.9% Sodium Chloride 50 ML IV SCH (08:53)
[2017-01-16 10:01] VITALS: PULSE 82
[2017-01-16 10:04] VITALS: BP 135/77; PULSE 86; RESP 18; O2SAT 93
--- NOTE | 2017-01-16 12:09 | PROG NOTE ---
[address] [address] PROGRESS NOTE PATIENT: DANA ARENAS : 1955 MR#: [id number] ADMIT: 01/12/2017 JOB ID: [id number] DATE: 01/16/2017 INFECTIOUS DISEASE FOLLOWUP NOTE: REASON FOR FOLLOWUP: Complicated ESBL E. coli urinary tract infection. INTERVAL HISTORY: Recall that this is a patient we saw in consult two days ago. At that point it seemed like a straightforward case of a intermediate resident with a complicated ESBL E. coli UTI and our plan was to treat him with ertapenem, which seemed to be working very well, for a total course of about 10 days of ertapenem. Subsequently, the patient has done very well with resolution of his fever and other signs of infection but his discharge has been held up. His transfer back to the nursing home facility has been held up because of climbing LFT, and we are once again asked to become involved in this case. This morning the patient is aphasic as he is normally but is able to communicate through hand signals. He indicates he is having no fevers, chills, or sweats. He does not feel poorly in any way. There is no respiratory or new GI complaint. He denies right upper quadrant pain. No nausea or vomiting. PHYSICAL EXAMINATION: Reveals a reasonably comfortable gentleman lying supine in his hospital bed. He is afebrile. Temp 36.7. He has been afebrile now for two days. Pulse 86, respiratory rate 18, blood pressure 135/77. He is saturating well on 3 L. He is in no distress as noted. His lungs are relatively clear, though he does not take deep inspirations. Cardiac tones without new murmur. Abdomen is benign. There is no hepatomegaly nor any hepatic tenderness appreciable. No skin rash. LABORATORIES: Include white count which has normalized all the way down to 7900 with basically normal diff at this point. His bandemia is gone. His creatinine is 0.89. His LFT though have dramatically increased in the past 72 hours. His AST was normal at 29 three days ago. It is now 330. His ALT was 15 three days ago. It is now 121. His alk phos remains normal, and his bilirubin is likewise normal. Micro data includes negative blood cultures, negative MRSA screen of the nose and the urine that was positive for ESBL E. coli, which is basically only sensitive to carbapenems. The renal ultrasound we had ordered on the has come back essentially benign. IMPRESSION: This patient is doing very well with respect to his extended spectrum beta lactamase Escherichia coli-complicated urinary tract infection. His fevers, leukocytosis and mental status changes have completely resolved, and he should be set for discharge with a plan to complete 10 days of ertapenem, except that his liver function tests have to start to jump in a hepatocellular pattern. This could be due to medication-induced injury, which was possible but unusual with ertapenem. If we are forced to switch off the carbapenems, it is hard to know where we would go with his antibiotics. Given his systemic illness when he came in, I do not think fosfomycin would be appropriate at this juncture, and we do not have any other readily available agents. In this case, it is worthwhile to check one of our new cephalosporins, and I have asked the Lab to do so. RECOMMENDATIONS: 1. This case discussed in detail with Dr. Winters. 2. Will check a right upper quadrant ultrasound, as well as hepatitis B and C serologies today. 3. I would cautiously continue with the ertapenem with daily followup on his LFT. 4. I have asked the Microbiology Lab to check a susceptibility to the new antibiotic Avycaz and see whether or not that may be an alternative. 5. Should his LFT continue to climb and we have no other explanation beyond the ertapenem, we could switch to the Avycaz to complete a course of 10 days total therapy, assuming the organism is susceptible. We may also need to check ceftolozane susceptibilities but that is not as easily available at this facility.
--- NOTE | 2017-01-16 14:42 | PCM.PNMED ---
Subjective Date of Service Jan 16, 2017 Subjective Minimally verbal but when asked how he is doing he gives a thumbs up. Seems to deny and new issues/complaints Exam Vital Signs Vital Sign - Last Date Time Temp Pulse Resp B/P Pulse Ox O2 Delivery O2 Flow Rate FiO2 01/16/17 10:04 36.7 86 18 135/77 93 OxyMask 3.00 Intake and Output 01/15/17 01/15/17 01/16/17 Cumulative From/Thru 15:00 23:00 07:00 01/12/17 06:41 - 01/16/17 06:54 Intake Total 300 ml 0 ml 7925 ml Output Total 795 ml 250 ml 2845 ml Balance -495 ml -250 ml 5080 ml Intake Oral 0 ml 0 ml 768 ml IV Total 300 ml 7157 ml Output Urine Total 795 ml 250 ml 2845 ml # Voids 5 2 27 # Bowel Movements 1 0 7 General: Alert, Cooperative, No Acute Distress Head: Normal Eyes: Scleral Anicteric Nose: Mucous Membr Moist/[place] Mouth: Mucous Membr Moist/[place] Neck: Supple Chest & Lungs: Chest Wall Normal, Clear to auscultation & percussion Cardiovascular: Regular Rate/Rhythm Abdomen: Non-tender, Non-distended, Normoactive bowel tones, Soft Extremities: Other (bilateral pedal edema) Neurological: Other (minimally verbal. no apparent acute defect) IVs and Medications Medications Reviewed: Medications were reviewed in detail Lab and Diagnostics Result Diagram: 01/16/1752301/16/17523 X-Rays, CTs and MRIs PROCEDURE: CT ANGIO CHEST PULMONARY EMBOLISM ([id number]) INDICATIONS: Hypoxia, SOB TECHNIQUE: After the administration of intravenous contrast, 2 mm thick sections acquired from the pulmonary apices to the posterior costophrenic angles. 3-dimensional maximum intensity projection (MIP) coronal and sagittal reformats were then acquired through the thorax. For radiation dose reduction, the following was used: automated exposure control, adjustment of mA and/or kV according to patient size. COMPARISON: [facility], , CHEST 1VW (PORTABLE), 04/17/2014, 12: 17. [facility], , XR CHEST 1VW (PORTABLE), 01/12/2017, 6:17. FINDINGS: Image quality: Suboptimal examination with significant respiratory motion artifacts. Pulmonary arteries: Pulmonary arteries are normal in size, and demonstrate no definitive intraluminal filling defects to suggest central pulmonary embolism. Lungs and pleura: There are bilateral groundglass infiltrates. Bibasilar atelectasis. No pleural effusions or pneumothorax. Central and peripheral airways are patent. Mediastinum: Heart size is normal, without pericardial effusion. No mediastinal or hilar adenopathy. Thoracic aorta is normal in caliber and enhancement. Esophagus is normal in caliber, without hiatal hernia. Bones and chest wall: No suspicious bony lesions. Ribs and thoracic spine appear intact throughout. Thyroid gland is normal. No axillary or supraclavicular adenopathy. Abdomen: Visualized upper abdominal solid organs appear normal in the early arterial phase of enhancement. IMPRESSION: 1. Limited examination due to respiratory motion artifact. No definitive central pulmonary emboli. 2. Bilateral groundglass infiltrates consistent with pneumonitis, pneumonia or pulmonary edema. 3. Bibasilar atelectasis. Dictated by: Jeremiah Mehta M.D. on 01/12/2017 at 10:06 Approved by: Jeremiah Mehta M.D. on 01/12/2017 at 10:32 Chest XRay: MPRESSION: Expiratory chest demonstrating bronchovascular crowding and bilateral pulmonary opacities. Developing pulmonary edema and/or bilateral pneumonia cannot be excluded and clinical correlation is recommended. Dictated by: Victorino Ford [facility] Interpreted: Kevan Torrez MD on 01/12/2017 at 9: 42 Approved by: Kevan Torrez M.D. on 01/12/2017 at 14:41 Cardiac Echo Impressions Name: DANA ARENAS JStudy Date: 01/14/2017 Height: 69 in Hospital Exam Location: [facility] Weight: 201 lb Gender: Male BSA: 2.1 m2 : 1955 Age: 61 yrs BP: 158/73 mm Hg Reason For Study: CHF Ordering Physician: HOSPITALIST [facility] Performed By: Amber Corado Referring Physician: Edin Amador Interpretation Summary The ejection fraction is estimated to be 55-60%. There is no significant valvular heart disease. Assessment & Plan 61-year-old gentleman who currently lives in a care home facility secondary to sequela of a traumatic brain injury 40 years ago presented with altered mental status, high fevers and pyuria # Acute transaminitis. Not present on admission. Ongoing and worsening. - Unclear etiology but possibly to side effect of Ertapenem - Per discussion with ID consult will continue with Ertapenem for now and followup repeat labs in am - Check U/S - Check Hepatitis B and C serologies today. # Acute ESBL E. Coli, present on admission. - Appreciate ID consult. Will followup with recs - Continue with IV Ertapenem as noted above # Acute sepsis, present on admission. Clinically resolved. - SIRS criteria include a white count of 21.6, T38.2 and altered mental status met at time of admit. - Source of infection acute urinary tract infection. # Acute toxic encephalopathy. Present on admission. Resolved - Likely due to underlying infection noted above # Possible fluid overload, acute, not present on admission. Seems resolved - Received a dose of IV Lasix on 01/15. - Echocardiogram report is essentially normal # Probable aspiration pneumonia, POA AND ACTIVE - Continue broad-spectrum antibiotics. - Nares MRSA negative. # Acute pyelonephritis, present on admission. - Workup and treatment as noted above # History of hypertension. Currently normotensive - Hold home BP meds and followup # Remote traumatic brain injury, POA and stable. Dispo: 2-3 days pending workup and resolution of transaminitis. VTE Mechanical Devices: Intermittant Pneumatic CD Resuscitation Status: DNR/DNI:Do Not Resuscitate/Intubate Denys Winters Jan 16, 2017 14:42 Denys Winters Jan 16, 2017 14:42 Denys Winters Jan 16, 2017 14:42
[2017-01-16 16:14] VITALS: BP 145/82; PULSE 80; RESP 18; O2SAT 95
--- NOTE | 2017-01-16 18:26 | DRSVH ---
PROCEDURE: US ABDOMEN, LIMITED ([id number]) INDICATIONS: rising LFT TECHNIQUE: Real-time focused scanning was performed of the abdomen, with image documentation. COMPARISON: None. FINDINGS: The study shows the liver to be normal in size measuring 16.9 cm in greatest dimension. Ech ogenicity is diffusely increased. Focal abnormality is not seen. This would be most likely fatty infi ltration. The intrahepatic biliary tree is not distended. The common hepatic-common bile duct is 3-6 mm in size. Gallbladder cannot be identified with confidence. There are no previous studies of the area to rule i n or out gallbladder removal. A stone filled gallbladder or bowel loop could cause the appearance is seen as well as previous cholecystectomy and bowel loops in the gallbladder fossa. Pancreas is not seen. Spleen shows maximum dimension of 12 cm. IMPRESSION: 1. Changes of the liver probably a fatty infiltration as the cause of increased echogenicity. 2. Intra-and extrahepatic biliary tree is not distended. Gallbladder itself cannot be identified. No previous imaging of the area and the patient cannot determine as well whether it has been removed. 3. Pancreas is obscured by bowel gas. Dictated by: Dilan Unger M.D. on 01/16/2017 at 18:20 Approved by: Dilan Unger M.D. on 01/16/2017 at 18:25
[2017-01-16 20:30] VITALS: BP 137/73; PULSE 56; RESP 18; O2SAT 97
[2017-01-17] VITALS (9 sets, daily range): BP systolic 137–156; BP diastolic 71–78; PULSE 61–80; RESP 16–20; O2SAT 93–97
--- NOTE | 2017-01-17 02:54 | NUR ---
Uneventful Night: Pt rested intermittently through the night with no complaints of pain or discomfort. Denies nausea. Course lungs sound bilaterally. 3L Oxymask. O2 Sats 96%. Communicates with hand signals and writing. Q 2 turns during the night. Pleasant and cooperative with care. Call light within reach, using appropriately. Frequent rounding in place.
[2017-01-17 06:02] LABS: BASOPHILS % (AUTO) 0.5 % (0-3); EOSINOPHILS % (AUTO) 2.4 % (0-5); MONOCYTES % (AUTO) 15.5 % (4-12); Mean Corpuscular Hemoglobin 33.6 pg (27.0-35.0); Mean Corpuscular Volume 95.3 fL (81-100); Platelet Count 251 bil/L (150-400)
[2017-01-17] MEDS: Ertapenem Inj 1,000 MG in 0.9% Sodium Chloride 50 ML IV SCH (09:04)
--- NOTE | 2017-01-17 15:22 | PCM.PNMED ---
Subjective Date of Service Jan 17, 2017 Subjective Minimally verbal but seems to deny and new issues/complaints Exam Vital Signs Vital Sign - Last Date Time Temp Pulse Resp B/P Pulse Ox O2 Delivery O2 Flow Rate FiO2 01/17/17 12:48 36.8 80 18 156/75 94 OxyMask 3.00 Intake and Output 01/16/17 01/16/17 01/17/17 Cumulative From/Thru 15:00 23:00 07:00 01/12/17 06:41 - 01/17/17 06:08 Intake Total 64 ml 236 ml 0 ml 8225 ml Output Total 2845 ml Balance 64 ml 236 ml 0 ml 5380 ml Intake Oral 236 ml 0 ml 1004 ml IV Total 64 ml 7221 ml Output Urine Total 2845 ml # Voids 3 2 32 # Bowel Movements 7 Exam General: Alert, Cooperative, No Acute Distress Head: Normal Eyes: Scleral Anicteric Nose: Mucous Membr Moist/[place] Mouth: Mucous Membr Moist/[place] Neck: Supple Chest & Lungs: Chest Wall Normal, Clear to auscultation & percussion Cardiovascular: Regular Rate/Rhythm Abdomen: Non-tender, Non-distended, Normoactive bowel tones, Soft Extremities: Other (bilateral pedal edema) Neurological: Other (minimally verbal. no apparent acute defect) IVs and Medications Medications Reviewed: Medications were reviewed in detail Lab and Diagnostics Result Diagram: 01/17/1751501/17/1716 X-Rays, CTs and MRIs PROCEDURE: CT ANGIO CHEST PULMONARY EMBOLISM ([id number]) INDICATIONS: Hypoxia, SOB TECHNIQUE: After the administration of intravenous contrast, 2 mm thick sections acquired from the pulmonary apices to the posterior costophrenic angles. 3-dimensional maximum intensity projection (MIP) coronal and sagittal reformats were then acquired through the thorax. For radiation dose reduction, the following was used: automated exposure control, adjustment of mA and/or kV according to patient size. COMPARISON: [facility], CR, CHEST 1VW (PORTABLE), 04/17/2014, 12: 17. [facility], CR, XR CHEST 1VW (PORTABLE), 01/12/2017, 6:17. FINDINGS: Image quality: Suboptimal examination with significant respiratory motion artifacts. Pulmonary arteries: Pulmonary arteries are normal in size, and demonstrate no definitive intraluminal filling defects to suggest central pulmonary embolism. Lungs and pleura: There are bilateral groundglass infiltrates. Bibasilar atelectasis. No pleural effusions or pneumothorax. Central and peripheral airways are patent. Mediastinum: Heart size is normal, without pericardial effusion. No mediastinal or hilar adenopathy. Thoracic aorta is normal in caliber and enhancement. Esophagus is normal in caliber, without hiatal hernia. Bones and chest wall: No suspicious bony lesions. Ribs and thoracic spine appear intact throughout. Thyroid gland is normal. No axillary or supraclavicular adenopathy. Abdomen: Visualized upper abdominal solid organs appear normal in the early arterial phase of enhancement. IMPRESSION: 1. Limited examination due to respiratory motion artifact. No definitive central pulmonary emboli. 2. Bilateral groundglass infiltrates consistent with pneumonitis, pneumonia or pulmonary edema. 3. Bibasilar atelectasis. Dictated by: Jeremiah Mehta M.D. on 01/12/2017 at 10:06 Approved by: Jeremiah Mehta M.D. on 01/12/2017 at 10:32 Chest XRay: MPRESSION: Expiratory chest demonstrating bronchovascular crowding and bilateral pulmonary opacities. Developing pulmonary edema and/or bilateral pneumonia cannot be excluded and clinical correlation is recommended. Dictated by: Victorino Ford [facility] Interpreted: Kevan Torrez MD on 01/12/2017 at 9: 42 Approved by: Kevan Torrez M.D. on 01/12/2017 at 14:41 Cardiac Echo Impressions Name: DANA ARENAS JStudy Date: 01/14/2017 Height: 69 in Hospital Exam Location: [facility] Weight: 201 lb Gender: Male BSA: 2.1 m2 : 1955 Age: 61 yrs BP: 158/73 mm Hg Reason For Study: CHF Ordering Physician: HOSPITALIST [facility] Performed By: Amber Corado Referring Physician: Edin Amador Interpretation Summary The ejection fraction is estimated to be 55-60%. There is no significant valvular heart disease. Additional Diagnostics Date of Service: 01/16/17 1121 PROCEDURE: US ABDOMEN, LIMITED ([id number]) IMPRESSION: 1. Changes of the liver probably a fatty infiltration as the cause of increased echogenicity. 2. Intra-and extrahepatic biliary tree is not distended. Gallbladder itself cannot be identified. No previous imaging of the area and the patient cannot determine as well whether it has been removed. 3. Pancreas is obscured by bowel gas. Dictated by: Dilan Unger M.D. on 01/16/2017 at 18:20 Approved by: Dilan Unger M.D. on 01/16/2017 at 18:25 Assessment & Plan 61-year-old gentleman who currently lives in a long-term facility secondary to sequela of a traumatic brain injury 40 years ago presented with altered mental status, high fevers and pyuria # Acute transaminitis. Not present on admission. Ongoing. - Unclear etiology but possibly to side effect of Ertapenem - Per discussion with ID consult will continue with Ertapenem for now and followup repeat labs in am - RUQ Abd U/S without acute finding as noted above - Hepatitis B and C serologies negative # Acute ESBL E. Coli, present on admission. - Appreciate ID consult. Will followup with recs - Continue with IV Ertapenem # Acute sepsis, present on admission. Clinically resolved. - SIRS criteria include a white count of 21.6, T38.2 and altered mental status met at time of admit. - Source of infection acute urinary tract infection. # Acute toxic encephalopathy. Present on admission. Resolved - Likely due to underlying infection noted above # Possible fluid overload, acute, not present on admission. Seems resolved - Received a dose of IV Lasix on 01/15. - Echocardiogram report is essentially normal # Probable aspiration pneumonia, POA AND ACTIVE - Continue broad-spectrum antibiotics. - Nares MRSA negative. # Acute pyelonephritis, present on admission. - Workup and treatment as noted above # History of hypertension. Currently normotensive - Hold home BP meds and followup # Remote traumatic brain injury, POA and stable. Dispo: 1-2 days pending workup and resolution of transaminitis. VTE Mechanical Devices: Intermittant Pneumatic CD Resuscitation Status: DNR/DNI:Do Not Resuscitate/Intubate Denys Winters Jan 17, 2017 15:22
--- NOTE | 2017-01-17 16:56 | NUR ---
Social Work: Brief Note JAMES unable to be delivered to patient. Patient is asleep. No family at bedside. SW will reattempt at another time. RAYMOND Awad
[2017-01-18] VITALS (10 sets, daily range): BP systolic 132–194; BP diastolic 70–83; PULSE 53–89; RESP 18–20; O2SAT 93–97
--- NOTE | 2017-01-18 01:27 | NUR ---
GI incontinent of urine / mariano care given. No c/o pain or SOB. Turning Q 2hrs with heels floated. No acute changes overnight. Care ongoing.
[2017-01-18] MEDS: Ertapenem Inj 1,000 MG in 0.9% Sodium Chloride 50 ML IV SCH (08:01)
--- NOTE | 2017-01-18 12:41 | NUR ---
Social Work: Readiness for Discharge/Multidisciplinary Rounds D: EMR reviewed. Pt is on day 6 of hospitalization. Pt is not medically stable for d/c-- anticipate tomorrow, possibly 2 more days pending LFTs. The patient will require 10 days of IV abx, is on ertapenem currently. T/C to [facility], admissions at [facility], regarding discharge planning needs. Pt is on ertapenem at this time and will likely require this at d/c. [facility] to coordinate with pharmacy, requested update if this abx changes prior to d/c. [facility] continues to be agreeable to accepting pt back at d/c as pt is LTC at [facility]. Paperwork in pt's chart. SW will continue to follow. A: Pt who is a LTC resident at [facility]. P: Anticipate pt to return to [facility] with Dr. Sunshine to follow; [facility] has confirmed that they will be able to accept pt back with IV abx. Requests update if abx changes. Paperwork in pt's chart. SW will continue to follow. Angle Li, [employer]
--- NOTE | 2017-01-18 16:46 | PCM.PNMED ---
Subjective Date of Service Jan 18, 2017 Subjective Minimally verbal but seems to deny and new issues/complaints Exam Vital Signs Vital Sign - Last Date Time Temp Pulse Resp B/P Pulse Ox O2 Delivery O2 Flow Rate FiO2 01/18/17 12:45 36.6 53 18 132/78 96 OxyMask 3.00 Intake and Output 01/17/17 01/17/17 01/18/17 Cumulative From/Thru 15:00 23:00 07:00 01/12/17 06:41 - 01/18/17 06:07 Intake Total 472 ml 0 ml 8697 ml Output Total 2845 ml Balance 472 ml 0 ml 5852 ml Intake Oral 472 ml 0 ml 1476 ml IV Total 7221 ml Output Urine Total 2845 ml # Voids 4 3 39 # Bowel Movements 0 1 8 Exam General: Alert, Cooperative, No Acute Distress Head: Normal Eyes: Scleral Anicteric Nose: Mucous Membr Moist/[place] Mouth: Mucous Membr Moist/[place] Neck: Supple Chest & Lungs: Chest Wall Normal, Clear to auscultation bilat Cardiovascular: Regular Rate/Rhythm Abdomen: Non-tender, Non-distended, Normoactive bowel tones, Soft Extremities: Other (bilateral pedal edema) Neurological: Other (minimally verbal. no apparent acute defect) IVs and Medications Medications Reviewed: Medications were reviewed in detail Lab and Diagnostics Result Diagram: 01/17/17 0516 01/18/17 0510 X-Rays, CTs and MRIs PROCEDURE: CT ANGIO CHEST PULMONARY EMBOLISM ([id number]) INDICATIONS: Hypoxia, SOB TECHNIQUE: After the administration of intravenous contrast, 2 mm thick sections acquired from the pulmonary apices to the posterior costophrenic angles. 3-dimensional maximum intensity projection (MIP) coronal and sagittal reformats were then acquired through the thorax. For radiation dose reduction, the following was used: automated exposure control, adjustment of mA and/or kV according to patient size. COMPARISON: [facility], CR, CHEST 1VW (PORTABLE), 04/17/2014, 12: 17. [facility], CR, XR CHEST 1VW (PORTABLE), 01/12/2017, 6:17. FINDINGS: Image quality: Suboptimal examination with significant respiratory motion artifacts. Pulmonary arteries: Pulmonary arteries are normal in size, and demonstrate no definitive intraluminal filling defects to suggest central pulmonary embolism. Lungs and pleura: There are bilateral groundglass infiltrates. Bibasilar atelectasis. No pleural effusions or pneumothorax. Central and peripheral airways are patent. Mediastinum: Heart size is normal, without pericardial effusion. No mediastinal or hilar adenopathy. Thoracic aorta is normal in caliber and enhancement. Esophagus is normal in caliber, without hiatal hernia. Bones and chest wall: No suspicious bony lesions. Ribs and thoracic spine appear intact throughout. Thyroid gland is normal. No axillary or supraclavicular adenopathy. Abdomen: Visualized upper abdominal solid organs appear normal in the early arterial phase of enhancement. IMPRESSION: 1. Limited examination due to respiratory motion artifact. No definitive central pulmonary emboli. 2. Bilateral groundglass infiltrates consistent with pneumonitis, pneumonia or pulmonary edema. 3. Bibasilar atelectasis. Dictated by: Jeremiah Mehta M.D. on 01/12/2017 at 10:06 Approved by: Jeremiah Mehta M.D. on 01/12/2017 at 10:32 Chest XRay: MPRESSION: Expiratory chest demonstrating bronchovascular crowding and bilateral pulmonary opacities. Developing pulmonary edema and/or bilateral pneumonia cannot be excluded and clinical correlation is recommended. Dictated by: Victorino Ford [facility] Interpreted: Kevan Torrez MD on 01/12/2017 at 9: 42 Approved by: Kevan Torrez M.D. on 01/12/2017 at 14:41 Cardiac Echo Impressions Name: DANA ARENAS JStudy Date: 01/14/2017 Height: 69 in Hospital Exam Location: [facility] Weight: 201 lb Gender: Male BSA: 2.1 m2 : 1955 Age: 61 yrs BP: 158/73 mm Hg Reason For Study: CHF Ordering Physician: HOSPITALIST [facility] Performed By: Amber Corado Referring Physician: Edin Amador Interpretation Summary The ejection fraction is estimated to be 55-60%. There is no significant valvular heart disease. Additional Diagnostics Date of Service: 01/16/17 1121 PROCEDURE: US ABDOMEN, LIMITED ([id number]) IMPRESSION: 1. Changes of the liver probably a fatty infiltration as the cause of increased echogenicity. 2. Intra-and extrahepatic biliary tree is not distended. Gallbladder itself cannot be identified. No previous imaging of the area and the patient cannot determine as well whether it has been removed. 3. Pancreas is obscured by bowel gas. Dictated by: Dilan Unger M.D. on 01/16/2017 at 18:20 Approved by: Dilan Unger M.D. on 01/16/2017 at 18:25 Assessment & Plan 61-year-old gentleman who currently lives in a intermediate facility secondary to sequela of a traumatic brain injury 40 years ago presented with altered mental status, high fevers and pyuria # Acute transaminitis. Not present on admission. Ongoing. - Unclear etiology but possibly to side effect of Ertapenem - Per discussion with ID consult will continue with Ertapenem for now - Followup repeat labs in am - RUQ Abd U/S without acute finding as noted above - Hepatitis B and C serologies negative # Acute ESBL E. Coli, present on admission. - Appreciate ID consult. Will followup with recs - Continue with IV Ertapenem # Acute sepsis, present on admission. Clinically resolved. - SIRS criteria include a white count of 21.6, T38.2 and altered mental status met at time of admit. - Source of infection acute urinary tract infection. # Acute toxic encephalopathy. Present on admission. Resolved - Likely due to underlying infection noted above # Possible fluid overload, acute, not present on admission. Seems resolved - Received a dose of IV Lasix on 01/15. - Echocardiogram report is essentially normal # Probable aspiration pneumonia, POA AND ACTIVE - Continue broad-spectrum antibiotics. - Nares MRSA negative. # Acute pyelonephritis, present on admission. - Workup and treatment as noted above # History of hypertension. Currently normotensive - Hold home BP meds and followup # Remote traumatic brain injury, POA and stable. Dispo: 1-2 days pending workup and resolution of transaminitis. VTE Mechanical Devices: Intermittant Pneumatic CD Resuscitation Status: DNR/DNI:Do Not Resuscitate/Intubate Denys Winters Jan 18, 2017 16:46
--- NOTE | 2017-01-18 18:59 | NUR ---
Behavior Pt slept off and on most of the day, when rounding pt was always smiling and giving the thumbs up, which is a change from yesterday. Pt denies pain or discomfort, is alert. Pt resting comfortably watching TV, with call light within reach, bed low and locked, intentional rounding.
[2017-01-19] VITALS (8 sets, daily range): BP systolic 128–144; BP diastolic 65–77; PULSE 50–73; RESP 16–20; O2SAT 92–99
--- NOTE | 2017-01-19 05:45 | NUR ---
NOC PT has slept well off and on. PT able to make needs known with writing or thumbs up and down. Denies any pain. Voiding in urinal tonight. Tele has been sinus nancy to low 50's at time. Unremarkable otherwise and pt is planning for d/c within 1-2 days per MD note back to [facility]. Afebrile, VS WNL. Lung sounds are diminished t/o. No cough noted. Will continue with current plan of IV abx.
--- NOTE | 2017-01-19 08:05 | PCM.PNMED ---
Subjective Date of Service Jan 19, 2017 Subjective Minimally verbal but seems to deny and new issues/complaints Exam Vital Signs Vital Sign - Last Date Time Temp Pulse Resp B/P Pulse Ox O2 Delivery O2 Flow Rate FiO2 01/19/17 05:50 37.1 50 20 134/74 97 OxyMask 3.00 Intake and Output 01/18/17 01/18/17 01/19/17 Cumulative From/Thru 15:00 23:00 07:00 01/12/17 06:41 - 01/19/17 05:59 Intake Total 1020 ml 9717 ml Output Total 350 ml 3195 ml Balance 670 ml 6522 ml Intake Oral 0 ml 1476 ml IV Total 1020 ml 8241 ml Output Urine Total 350 ml 3195 ml # Voids 1 40 # Bowel Movements 8 Exam General: Alert, Cooperative, No Acute Distress Head: Normal Eyes: Scleral Anicteric Nose: Mucous Membr Moist/[place] Mouth: Mucous Membr Moist/[place] Neck: Supple Chest & Lungs: Chest Wall Normal, Clear to auscultation bilat Cardiovascular: Regular Rate/Rhythm Abdomen: Non-tender, Non-distended, Normoactive bowel tones, Soft Extremities: Other (bilateral pedal edema) Neurological: Other (minimally verbal. no apparent acute defect) IVs and Medications Medications Reviewed: Medications were reviewed in detail Lab and Diagnostics Result Diagram: 01/17/17 0516 01/19/17 0520 X-Rays, CTs and MRIs PROCEDURE: CT ANGIO CHEST PULMONARY EMBOLISM ([id number]) INDICATIONS: Hypoxia, SOB TECHNIQUE: After the administration of intravenous contrast, 2 mm thick sections acquired from the pulmonary apices to the posterior costophrenic angles. 3-dimensional maximum intensity projection (MIP) coronal and sagittal reformats were then acquired through the thorax. For radiation dose reduction, the following was used: automated exposure control, adjustment of mA and/or kV according to patient size. COMPARISON: [facility], CR, CHEST 1VW (PORTABLE), 04/17/2014, 12: 17. [facility], CR, XR CHEST 1VW (PORTABLE), 01/12/2017, 6:17. FINDINGS: Image quality: Suboptimal examination with significant respiratory motion artifacts. Pulmonary arteries: Pulmonary arteries are normal in size, and demonstrate no definitive intraluminal filling defects to suggest central pulmonary embolism. Lungs and pleura: There are bilateral groundglass infiltrates. Bibasilar atelectasis. No pleural effusions or pneumothorax. Central and peripheral airways are patent. Mediastinum: Heart size is normal, without pericardial effusion. No mediastinal or hilar adenopathy. Thoracic aorta is normal in caliber and enhancement. Esophagus is normal in caliber, without hiatal hernia. Bones and chest wall: No suspicious bony lesions. Ribs and thoracic spine appear intact throughout. Thyroid gland is normal. No axillary or supraclavicular adenopathy. Abdomen: Visualized upper abdominal solid organs appear normal in the early arterial phase of enhancement. IMPRESSION: 1. Limited examination due to respiratory motion artifact. No definitive central pulmonary emboli. 2. Bilateral groundglass infiltrates consistent with pneumonitis, pneumonia or pulmonary edema. 3. Bibasilar atelectasis. Dictated by: Jeremiah Mehta M.D. on 01/12/2017 at 10:06 Approved by: Jeremiah Mehta M.D. on 01/12/2017 at 10:32 Chest XRay: MPRESSION: Expiratory chest demonstrating bronchovascular crowding and bilateral pulmonary opacities. Developing pulmonary edema and/or bilateral pneumonia cannot be excluded and clinical correlation is recommended. Dictated by: Victorino Ford RRA Interpreted: Kevan Torrez MD on 01/12/2017 at 9: 42 Approved by: Kevan Torrez M.D. on 01/12/2017 at 14:41 Cardiac Echo Impressions Name: DANA ARENAS JStudy Date: 01/14/2017 Height: 69 in Hospital Exam Location: [facility] Weight: 201 lb Gender: Male BSA: 2.1 m2 : 1955 Age: 61 yrs BP: 158/73 mm Hg Reason For Study: CHF Ordering Physician: HOSPITALIST [facility] Performed By: Amber Corado Referring Physician: Edin Amador Interpretation Summary The ejection fraction is estimated to be 55-60%. There is no significant valvular heart disease. Additional Diagnostics Date of Service: 01/16/17 1121 PROCEDURE: US ABDOMEN, LIMITED ([id number]) IMPRESSION: 1. Changes of the liver probably a fatty infiltration as the cause of increased echogenicity. 2. Intra-and extrahepatic biliary tree is not distended. Gallbladder itself cannot be identified. No previous imaging of the area and the patient cannot determine as well whether it has been removed. 3. Pancreas is obscured by bowel gas. Dictated by: Dilan Unger M.D. on 01/16/2017 at 18:20 Approved by: Dilan Unger M.D. on 01/16/2017 at 18:25 Assessment & Plan 61-year-old gentleman who currently lives in a [facility] facility secondary to sequela of a traumatic brain injury 40 years ago presented with altered mental status, high fevers and pyuria # Acute transaminitis. Not present on admission. Improving - Unclear etiology but possibly to side effect of Ertapenem and dehydration - Per discussion with ID consult will continue with Ertapenem for now - Followup repeat labs in am - RUQ Abd U/S without acute finding as noted above - Hepatitis B and C serologies negative # Acute hypernatremia, not present on admission. - Resolved with hydration with 1/2NS - Followup # Acute ESBL E. Coli, present on admission. - Appreciate ID consult. Will followup with recs - Continue with IV Ertapenem # Acute sepsis, present on admission. - Clinically resolved. - SIRS criteria include a white count of 21.6, T38.2 and altered mental status met at time of admit. - Source of infection acute urinary tract infection. # Acute toxic encephalopathy. Present on admission. Resolved - Likely due to underlying infection noted above # Possible fluid overload, acute, not present on admission. Seems resolved - Received a dose of IV Lasix on 01/15. - Echocardiogram report is essentially normal # Probable aspiration pneumonia, POA AND ACTIVE - Continue broad-spectrum antibiotics. - Nares MRSA negative. # Acute pyelonephritis, present on admission. - Workup and treatment as noted above # History of hypertension. Currently normotensive - Hold home BP meds and followup # Remote traumatic brain injury, POA and stable. Dispo: 1-2 days pending resolution of transaminitis. VTE Mechanical Devices: Intermittant Pneumatic CD Resuscitation Status: DNR/DNI:Do Not Resuscitate/Intubate Denys Winters Jan 19, 2017 08:05
[2017-01-19] MEDS: Ertapenem Inj 1,000 MG in 0.9% Sodium Chloride 50 ML IV SCH (08:42)
--- NOTE | 2017-01-19 10:24 | NUR ---
FAMILY CONCERNS Spoke with Linda today (sister in law) she will be out of town and will not be available if patient will be discharge today or tomorrow. Per rounds today anticipating discharge tomorrow. All belongings were taken home yesterday by Linda. Will continue to monitor.
--- NOTE | 2017-01-19 13:21 | PROG NOTE ---
[address] [address] PROGRESS NOTE PATIENT: DANA ARENAS : 1955 MR#: [id number] ADMIT: 01/12/2017 JOB ID: [id number] DATE: 01/19/2017 REASON FOR FOLLOWUP: Complicated ESBL E. coli urinary tract infection. INTERVAL HISTORY: Over the weekend, the patient has felt relatively well. This morning, he is enthusiastically consuming ice cream and reports no complaints. Recall that he is nonverbal and communicates by putting his thumb up and down. He says he has no fevers or chills and he is feeling better. PHYSICAL EXAMINATION: Reveals an afebrile gentleman sitting up in bed. Temp 36.4, pulse 73, respiratory rate 20, blood pressure 144/77. He is saturating well on 3 L. He is in no distress. Lungs relatively clear. Cardiac tones without new murmur. Abdomen without right upper quadrant tenderness. No flank tenderness noted. LABORATORIES: Include a normal white count, now 7600. Creatinine 0.74. His LFTs, which have been inexplicably rising towards the end of last week are now normalizing. His AST has dropped by half to 151. His alk phos is down to 93. His albumin 2.7. Procalcitonin 0.25. Hep C is negative. Hepatitis B surface antigen negative. Recall that his urine grew the ESBL E. Coli. Blood cultures were negative. The abdominal ultrasound we ordered on Thursday to evaluate his LFTs showed fatty liver without any other notable abnormalities, though it was noted that the gallbladder could not be visualized. IMPRESSION: This patient is doing well with respect to his extended-spectrum beta-lactamase complicated urinary tract infection. Fever and leukocytosis have resolved and he looks well at this point. The only concern is his abrupt increase and now decrease in his liver function tests, which remain unexplained in this otherwise nontoxic gentleman. RECOMMENDATIONS: 1. Given his normalizing LFTs, I think he can be discharged at any time. 2. We had checked to prove that the organism was susceptible to Avycaz, which it is, but we are not going to need it at this point, and I think we can just go ahead and complete his 10 days of ertapenem. 3. His ertapenem can be continued and completed either here in the hospital or he can be transferred back to the group home facility where he resides. 4. ID will go ahead and sign off on this case at this time.
--- NOTE | 2017-01-19 16:59 | NUR ---
NUTRITION FOLLOW-UP: ASSESS: 61 YO Male admitted for altered mental status, high fevers and pyuria. Pt has history of TBI and is aphasic. He has been NPO/Stimulation diet x 7 days. aware and will try to have ST re-eval pt to see if pt diet can be advanced. PMHX: TBI, HTN LABS: Reviewed. Cr .74, AST 151, ALT 86, Alb 2.7 MEDS: Reviewed. GI: BM x 1 (01/18) SKIN: no major issues CURRENT WTS: 91.4 kg, BMI 29.8 kg/m2, admit wt 86 kg DIET: Stimulation. PO 50-100% of meals. EST. NEEDS: Kcals: 0654-8602 kcal/day (25-30 kcal/kg BW) Pro: 90-110 g/day (1.0-1.2 g/kg BW) NUTRITION DIAGNOSIS: 1.) Inadequate oral intake related to decreased ability to consume sufficient energy as evidenced by current NPO/Stimulation diet x 7 days--PERSISTS. 2.) Chewing / swallowing difficulties related to chronic dysphagia as evidenced by current need for stimulation diet, ST following. NUTRITION INTERVENTION: 1.) Continue to advance diet as able per ST recommendations. 2.) If diet cannot be advanced and well tolerated, consider nutrition support if consistent with pt plan of care. MONITOR / EVAL: Diet advancement /tolerance, labs, ST eval, nutrition status, POC. Will continue to monitor per high nutrition risk guidelines.
--- NOTE | 2017-01-19 20:40 | NUR ---
Stim Diet / O2 Sats requested 2 puddings this shift, 1:1 feed no cough or groggy sounds noted. Assisted with lighting, position. Oxymask 3L maintaining 97% O2 Sats. With mask off during food intake O2 sat down to 90% but quickly back up to 97% with mask back on.
[2017-01-20] VITALS (8 sets, daily range): BP systolic 119–156; BP diastolic 68–87; PULSE 55–73; RESP 16–18; O2SAT 93–99
[2017-01-20] MEDS: Ertapenem Inj 1,000 MG in 0.9% Sodium Chloride 50 ML IV SCH (07:40)
--- NOTE | 2017-01-20 08:11 | PCM.PNMED ---
Subjective Date of Service Jan 20, 2017 Subjective Minimally verbal but seems to deny and new issues/complaints Exam Vital Signs Vital Sign - Last Date Time Temp Pulse Resp B/P Pulse Ox O2 Delivery O2 Flow Rate FiO2 01/20/17 05:55 36.7 55 18 156/87 94 OxyMask 3.00 Intake and Output 01/19/17 01/19/17 01/20/17 Cumulative From/Thru 15:00 23:00 07:00 01/12/17 06:41 - 01/20/17 06:20 Intake Total 866 ml 1200 ml 64473 ml Output Total 300 ml 3495 ml Balance 566 ml 1200 ml 8288 ml Intake Oral 0 ml 1476 ml IV Total 866 ml 1200 ml 09504 ml Output Urine Total 300 ml 3495 ml # Voids 1 41 # Bowel Movements 0 8 Exam General: Alert, Cooperative, No Acute Distress Head: Normal Eyes: Scleral Anicteric Nose: Mucous Membr Moist/[place] Mouth: Mucous Membr Moist/[place] Neck: Supple Chest & Lungs: Chest Wall Normal, Clear to auscultation bilat Cardiovascular: Regular Rate/Rhythm Abdomen: Non-tender, Non-distended, Normoactive bowel tones, Soft Extremities: Other (bilateral pedal edema) Neurological: Other (minimally verbal. no apparent acute defect) IVs and Medications Medications Reviewed: Medications were reviewed in detail Lab and Diagnostics Result Diagram: 01/17/17 0516 01/20/17 0500 X-Rays, CTs and MRIs PROCEDURE: CT ANGIO CHEST PULMONARY EMBOLISM ([id number]) INDICATIONS: Hypoxia, SOB TECHNIQUE: After the administration of intravenous contrast, 2 mm thick sections acquired from the pulmonary apices to the posterior costophrenic angles. 3-dimensional maximum intensity projection (MIP) coronal and sagittal reformats were then acquired through the thorax. For radiation dose reduction, the following was used: automated exposure control, adjustment of mA and/or kV according to patient size. COMPARISON: [facility], CR, CHEST 1VW (PORTABLE), 04/17/2014, 12: 17. [facility], CR, XR CHEST 1VW (PORTABLE), 01/12/2017, 6:17. FINDINGS: Image quality: Suboptimal examination with significant respiratory motion artifacts. Pulmonary arteries: Pulmonary arteries are normal in size, and demonstrate no definitive intraluminal filling defects to suggest central pulmonary embolism. Lungs and pleura: There are bilateral groundglass infiltrates. Bibasilar atelectasis. No pleural effusions or pneumothorax. Central and peripheral airways are patent. Mediastinum: Heart size is normal, without pericardial effusion. No mediastinal or hilar adenopathy. Thoracic aorta is normal in caliber and enhancement. Esophagus is normal in caliber, without hiatal hernia. Bones and chest wall: No suspicious bony lesions. Ribs and thoracic spine appear intact throughout. Thyroid gland is normal. No axillary or supraclavicular adenopathy. Abdomen: Visualized upper abdominal solid organs appear normal in the early arterial phase of enhancement. IMPRESSION: 1. Limited examination due to respiratory motion artifact. No definitive central pulmonary emboli. 2. Bilateral groundglass infiltrates consistent with pneumonitis, pneumonia or pulmonary edema. 3. Bibasilar atelectasis. Dictated by: Jeremiah Mehta M.D. on 01/12/2017 at 10:06 Approved by: Jeremiah Mehta M.D. on 01/12/2017 at 10:32 Chest XRay: MPRESSION: Expiratory chest demonstrating bronchovascular crowding and bilateral pulmonary opacities. Developing pulmonary edema and/or bilateral pneumonia cannot be excluded and clinical correlation is recommended. Dictated by: Victorino Ford RR Interpreted: Kevan Torrez MD on 01/12/2017 at 9: 42 Approved by: Kevan Torrez M.D. on 01/12/2017 at 14:41 Cardiac Echo Impressions Name: DANA ARENAS JStudy Date: 01/14/2017 Height: 69 in Hospital Exam Location: [facility] Weight: 201 lb Gender: Male BSA: 2.1 m2 : 1955 Age: 61 yrs BP: 158/73 mm Hg Reason For Study: CHF Ordering Physician: HOSPITALIST [facility] Performed By: Amber Corado Referring Physician: Edin Amador Interpretation Summary The ejection fraction is estimated to be 55-60%. There is no significant valvular heart disease. Additional Diagnostics Date of Service: 01/16/17 1121 PROCEDURE: US ABDOMEN, LIMITED ([id number]) IMPRESSION: 1. Changes of the liver probably a fatty infiltration as the cause of increased echogenicity. 2. Intra-and extrahepatic biliary tree is not distended. Gallbladder itself cannot be identified. No previous imaging of the area and the patient cannot determine as well whether it has been removed. 3. Pancreas is obscured by bowel gas. Dictated by: Dilan Unger M.D. on 01/16/2017 at 18:20 Approved by: Dilan Unger M.D. on 01/16/2017 at 18:25 Assessment & Plan 61-year-old gentleman who currently lives in a [facility] facility secondary to sequela of a traumatic brain injury 40 years ago presented with altered mental status, high fevers and pyuria # Acute transaminitis. Not present on admission. Improving - Unclear etiology but possibly to side effect of Ertapenem and dehydration - Per discussion with ID consult will continue with Ertapenem for now - Followup repeat labs in am - RUQ Abd U/S without acute finding as noted above - Hepatitis B and C serologies negative - Continue to hold home dose Statin # Acute hypernatremia, not present on admission. - Resolved with hydration with 1/2NS - Followup # Acute ESBL E. Coli, present on admission. - Appreciate ID consult. Will followup with recs - Continue with IV Ertapenem for total 10 days # Acute sepsis, present on admission. - Clinically resolved. - SIRS criteria include a white count of 21.6, T38.2 and altered mental status met at time of admit. - Source of infection acute urinary tract infection. # Acute toxic encephalopathy. Present on admission. Resolved - Likely due to underlying infection noted above # Possible fluid overload, acute, not present on admission. Seems resolved - Received a dose of IV Lasix on 01/15. - Echocardiogram report is essentially normal # Probable aspiration pneumonia, POA AND ACTIVE - Continue broad-spectrum antibiotics. - Nares MRSA negative. # Acute pyelonephritis, present on admission. - Workup and treatment as noted above # History of hypertension. BP elevated today - BP had been normotensive off BP meds for past few days but now elevated - Resume home dose BP meds today and followup to make sure able to tolerate # Remote traumatic brain injury, POA and stable. - Resume home dose Depakote and Phenobarb today (01/20/17) which were not continued since admission! - Followup repeat labs in AM to ensure stable after resuming these meds Dispo: possibly back to SNF tomorrow pending stable BP and continuing improvement of transaminitis after resuming home BP and seizure meds today. VTE Mechanical Devices: Intermittant Pneumatic CD Resuscitation Status: DNR/DNI:Do Not Resuscitate/Intubate Denys Winters Jan 20, 2017 08:11
[2017-01-20] MEDS: Artificial Tears 15 mL Ophthalmic Solution BOTH_EYES SCH ×2 (08:55→20:39)
--- NOTE | 2017-01-20 09:40 | NUR ---
ST called to visit pt per MD request to evaluate if pt can be upgraded from STIM diet.
--- NOTE | 2017-01-20 10:30 | NUR ---
Social Work-readiness for discharge: Data:EMR Reviewed. Pt is on day 8 of hospitalization for sepsis per H&P. Pt is not medically stable anticipate tomorrow. SW called Shyla Shelley at [facility] and provided her with update, she is agreeable. ID recommends 10 day course of IV abx, [facility] is able to accommodate this. Pt is detention care pt at [facility]. Paperwork in the chart. SW will continue to follow. Assessment:pt who resides at [facility]. Plan:Pt to discharge back to [facility] when medically stable. Pt to be on 10 day course of IV abx at discharge. Paperwork in the chart. SW will continue to follow. RAYMOND Burch
--- NOTE | 2017-01-20 10:39 | NUR ---
JAMES: Spoke with COLORER MACHINE and this JAMES was missed over weekend, this patient has a DPOA and her name is Linda. COLORER MACHINE agreed to follow up with her today.
--- NOTE | 2017-01-20 11:27 | NUR ---
JAMES verbally signed with sister via phone. Sister currently out of town. Laura Cotton,VESSEL CAPTAIN
[2017-01-20] MEDS ORDERED: PHENobarbital 32.4 mg Tablet PO SCH (21:00)
[2017-01-21 00:36] VITALS: BP 142/73; PULSE 70; RESP 18; O2SAT 95
--- NOTE | 2017-01-21 04:47 | NUR ---
Activity Pt rested intermittently during the night. Using urinal independently. Alert and oriented. No complaints of pain or discomfort, SOB, n/v. Call light within reach, using appropriately. Frequent rounding in place. Pleasant and cooperative with care.
[2017-01-21 05:22] VITALS: BP 139/78; PULSE 73; RESP 18; O2SAT 93
[2017-01-21 08:29] VITALS: BP 125/65; PULSE 80; RESP 19; O2SAT 95
[2017-01-21] MEDS: Ertapenem Inj 1,000 MG in 0.9% Sodium Chloride 50 ML IV SCH (08:56)
[2017-01-21] MEDS: Artificial Tears 15 mL Ophthalmic Solution BOTH_EYES SCH (09:00)
--- NOTE | 2017-01-21 10:15 | PCM.DC.MED ---
Discharge Summary Date of Service Jan 21, 2017 Dates of Hospitalization Date of Hospital Admission Jan 12, 2017 at 11:20 Date of Discharge: Jan 21, 2017 Providers: Admitting Physician: Kael Wayne MD Primary Care Physician: Bora Mcdowell MD Attending Physician: Kg Angulo DO Diagnosis at Time of Discharge Diagnosis at Time of Discharge # Acute transaminitis. Not present on admission. Improving # Acute hypernatremia, not present on admission. # Acute ESBL E. Coli, present on admission. # Acute toxic encephalopathy. Present on admission. Resolved # Possible fluid overload, acute, not present on admission. Seems resolved # Probable aspiration pneumonia, POA AND ACTIVE # Acute pyelonephritis, present on admission. # History of hypertension. # Remote traumatic brain injury, POA and stable. Consultations Dr Yousif, Infectious disease Procedures XRay, CTs & MRIs PROCEDURE: CT ANGIO CHEST PULMONARY EMBOLISM ([id number]) INDICATIONS: Hypoxia, SOB TECHNIQUE: After the administration of intravenous contrast, 2 mm thick sections acquired from the pulmonary apices to the posterior costophrenic angles. 3-dimensional maximum intensity projection (MIP) coronal and sagittal reformats were then acquired through the thorax. For radiation dose reduction, the following was used: automated exposure control, adjustment of mA and/or kV according to patient size. COMPARISON: [facility], , CHEST 1VW (PORTABLE), 04/17/2014, 12: 17. [facility], , XR CHEST 1VW (PORTABLE), 01/12/2017, 6:17. FINDINGS: Image quality: Suboptimal examination with significant respiratory motion artifacts. Pulmonary arteries: Pulmonary arteries are normal in size, and demonstrate no definitive intraluminal filling defects to suggest central pulmonary embolism. Lungs and pleura: There are bilateral groundglass infiltrates. Bibasilar atelectasis. No pleural effusions or pneumothorax. Central and peripheral airways are patent. Mediastinum: Heart size is normal, without pericardial effusion. No mediastinal or hilar adenopathy. Thoracic aorta is normal in caliber and enhancement. Esophagus is normal in caliber, without hiatal hernia. Bones and chest wall: No suspicious bony lesions. Ribs and thoracic spine appear intact throughout. Thyroid gland is normal. No axillary or supraclavicular adenopathy. Abdomen: Visualized upper abdominal solid organs appear normal in the early arterial phase of enhancement. IMPRESSION: 1. Limited examination due to respiratory motion artifact. No definitive central pulmonary emboli. 2. Bilateral groundglass infiltrates consistent with pneumonitis, pneumonia or pulmonary edema. 3. Bibasilar atelectasis. Dictated by: Jeremiah Mehta M.D. on 01/12/2017 at 10:06 Approved by: Jeremiah Mehta M.D. on 01/12/2017 at 10:32 Chest XRay: MPRESSION: Expiratory chest demonstrating bronchovascular crowding and bilateral pulmonary opacities. Developing pulmonary edema and/or bilateral pneumonia cannot be excluded and clinical correlation is recommended. Dictated by: Victorino Ford RRA Interpreted: Kevan Torrez MD on 01/12/2017 at 9: 42 Approved by: Kevan Torrez M.D. on 01/12/2017 at 14:41 Cardiac Echo Impression Name: DANA ARENAS JStudy Date: 01/14/2017 Height: 69 in Hospital Exam Location: [facility] Weight: 201 lb Gender: Male BSA: 2.1 m2 : 1955 Age: 61 yrs BP: 158/73 mm Hg Reason For Study: CHF Ordering Physician: HOSPITALIST [facility] Performed By: Amber Corado Referring Physician: Edin Amador Interpretation Summary The ejection fraction is estimated to be 55-60%. There is no significant valvular heart disease. Other Diagnostics Date of Service: 01/16/17 1121 PROCEDURE: US ABDOMEN, LIMITED ([id number]) IMPRESSION: 1. Changes of the liver probably a fatty infiltration as the cause of increased echogenicity. 2. Intra-and extrahepatic biliary tree is not distended. Gallbladder itself cannot be identified. No previous imaging of the area and the patient cannot determine as well whether it has been removed. 3. Pancreas is obscured by bowel gas. Dictated by: Dilan Unger M.D. on 01/16/2017 at 18:20 Approved by: Dilan Unger M.D. on 01/16/2017 at 18:25 Brief History As per admission HPI by Dr Kael Wayne, "This is a 61-year-old gentleman with a history of traumatic brain injury who is limited ability to communicate at baseline and today. The patient says of [facility] for the last 9 years, jail facility. He apparently was noted to be less communicative and more lethargic as well as having a fever noting some right sided chest pain. He was brought to the emergency department by ambulance. They noted him to have hypoxia and a fever as well. No further history is obtainable in the emergency department because of the patient's mental status. He was however febrile, noted to have bilateral basal opacities on chest CT consistent with pneumonia, and have evidence of urinary tract infection. He was given antibiotics. The resuscitation was started. He was not hypotensive. The patient is seen on the [place] with mother and father. He is not really able to participate in any way other than given a thumbs up to note understanding of the general labs. They note that he is appropriate for BiPAP if needed fluids and IV antibiotics. They would not want heroic measures, invasive procedures or ICU level care including mechanical ventilation or intubation. Other subjective is not obtainable due to his mental status." Hospital Course # Acute transaminitis. Not present on admission. Improving - Unclear etiology but possibly to side effect of Ertapenem and dehydration. Condition improving [id number], not yet normalized on DC but stable on Ertapenem, likely will imrpove further once antbiotic course complete. - RUQ Abd U/S without acute finding - Hepatitis B and C serologies negative - Continue to hold home dose Statin, reconsider once Ertapenem complete and LFTs normalized. - Recommend FU level in ~ 2 weeks following discharge. # Acute hypernatremia, not present on admission. - Resolved with hydration with 1/2NS # Acute ESBL E. Coli, present on admission. - Appreciate ID consult. Will followup with recs - Continue with IV Ertapenem for total 10 days, Now day 12/01, To be completed 01/24/2017. # Acute sepsis, present on admission. - Clinically resolved. - SIRS criteria include a white count of 21.6, T38.2 and altered mental status met at time of admit. - Source of infection acute urinary tract infection. # Acute toxic encephalopathy. Present on admission. Resolved - Likely due to underlying infection noted above # Possible fluid overload, acute, not present on admission. Seems resolved - Received a dose of IV Lasix on 01/15. - Echocardiogram report is essentially normal # Probable aspiration pneumonia, POA AND ACTIVE - Continue broad-spectrum antibiotics. - Nares MRSA negative. # Acute pyelonephritis, present on admission. - Workup and treatment as noted above # History of hypertension. - BP had been normotensive off BP meds for past few days but subsequently blood pressures became elevated - Resumed home dose BP meds prior to DC, improved BPs noted in response # Remote traumatic brain injury, POA and stable. - Resume home dose Depakote and Phenobarb today (01/20/17) which were not continued initially, restarted prior to discharge. Exam Vital Signs (Last) Date Time Temp Pulse Resp B/P Pulse Ox O2 Delivery O2 Flow Rate FiO2 01/21/17 09:11 Supplement Oxygen 01/21/17 08:29 36.7 80 19 125/65 95 3.00 Exam General: Alert, Cooperative, No Acute Distress Mouth: Mucous Membranes Moist Chest & Lungs: Chest Wall Normal, Clear to auscultation bilat Cardiovascular: Regular Rate/Rhythm Abdomen: Non-tender, Non-distended, Normoactive bowel tones, Soft Neurological: minimally verbal. Able to write however, no apparent acute defect ) Test 01/12/17 00:00 01/12/17 06:58 01/12/17 07:15 01/12/17 08:06 Troponin T 0.010ug/L (0.0-0.011) Pro-B-Type Natriuretic Peptide 570.2pg/mL (0-210) D-Dimer 0.68mg/L FEU (<0.50) Lactic Acid Level 1.2mmol/L (0.4-2.0) Valproic Acid (Depakene) Level 63ug/mL (50-125) Urine Color Dark yellow (YELLOW) Urine Appearance Hazy (CLEAR,HAZY) Urine pH 5.5 (5.0-8.0) Urine Specific [place] 1.030 (1.003-1.035) Urine Protein 100mg/dL (NEG,TRACE) Urine Glucose (UA) Negativemg/dL (NEGATIVE) Urine Ketones 15mg/dL (NEGATIVE) Urine Occult Blood Moderate (NEGATIVE) Urine Nitrite Negative (NEGATIVE) Urine Bilirubin Negative (NEGATIVE) Urine Urobilinogen Normalmg/dL (NORMAL) Urine Leukocyte Esterase Small (NEGATIVE) Urine RBC 3-10/hpf (0-2) Urine WBC >50/hpf (0-5) Urine Epithelial Cells Occasional/hpf (NONE-MOD) Urine Crystals None seen (NONE SEEN) Urine Bacteria Moderate/hpf (NONE-FEW) Urine Hyaline Casts None/lpf (NONE) Urine Granular Casts None seen (NONE SEEN) Urine Waxy Casts None seen (NONE SEEN) Urine Red Blood Cell Casts None seen (NONE SEEN) Urine White Blood Cell Casts None seen (NONE SEEN) Urine Mucus Present (None Seen) Urine Trichomonas None seen (NONE SEEN) Urine Yeast None (NONE SEEN) Urinalysis Comment None Urine Culture Reflexed Indicated Test 01/13/17 03:25 01/16/17 05:24 01/17/17 05:16 01/21/17 05:45 Band Neutrophils % 7% (1-5) Procalcitonin 0.45ng/mL (0.00-0.08) Hepatitis B Surface Antigen Negative (Negative) Hepatitis C Antibody <0.1s/co ratio (0.0-0.9) White Blood Count 7.6th/mm3 (3.8-10.1) Red Blood Count 3.87mil/mm3 (4.40-5.80) Hemoglobin 13.0g/dL (13.8-17.2) Hematocrit 36.9% (41.0-50.0) Mean Corpuscular Volume 95.3fL (81-100) Mean Corpuscular Hemoglobin 33.6pg (27.0-35.0) Mean Corpuscular Hemoglobin Concent 35.2% (32.0-37.0) Red Cell Distribution Width 14.3% (12.3-15.4) Platelet Count 251bil/L (150-400) Neutrophils (%) (Auto) 50.0% (40-74) Lymphocytes (%) (Auto) 29.8% (14-46) Monocytes (%) (Auto) 15.5% (4-12) Eosinophils (%) (Auto) 2.4% (0-5) Basophils (%) (Auto) 0.5% (0-3) Sodium Level 141mEq/L (134-144) Potassium Level 4.4mEq/L (3.5-5.2) Chloride Level 100mEq/L (97-108) Carbon Dioxide Level 25mmol/L (18-29) Blood Urea Nitrogen 18mg/dL (6-24) Creatinine 0.85mg/dL (0.76-1.27) Estimat Glomerular Filtration Rate 98mL/min (>59) Glucose Level 85mg/dL (60-99) Calcium Level 9.2mg/dL (8.5-10.1) Total Bilirubin 0.3mg/dL (0.0-1.2) Aspartate Amino Transf (AST/SGOT) 143U/L (0-50) Alanine Aminotransferase (ALT/SGPT) 105U/L (0-44) Alkaline Phosphatase 113U/L (25-160) Total Protein 6.5g/dL (6.4-8.4) Albumin 3.5g/dL (3.4-5.0) Discharge Medications Discharge Medications Amlodipine (Amlodipine) 10 Mg Tablet 10 MG PO DAILY (Reported) Atorvastatin Calcium (Atorvastatin Calcium) 40 Mg Tablet 40 MG PO HS (Reported) Calcium Carbonate/Vitamin D3 (Calcium 500 + Vit D 200 Tablet) 1 Each Tablet 1 TABLET PO BID (Reported) Divalproex DR (Depakote DR) 500 Mg Tablet 500 MG PO BID (Reported) Lisinopril (Lisinopril) 10 Mg Tablet 10 MG PO DAILY (Reported) Multivitamin (Multi Vitamin Daily) 1 Each Tablet 1 TABLET PO DAILY (Reported) Phenobarbital (Phenobarbital) 64.8 Mg Tablet 64.8 MG PO HS (Reported) Polyvinyl Alcohol/Povidone/Pf (Refresh Classic Eye Drops) 1 Each Droperette 1 DROP BOTH_EYES BID (Reported) Ranitidine (Zantac) 150 Mg Tablet 150 MG PO DAILY (Reported) Sennosides (Senna) 8.6 Mg Tablet 17.2 MG PO HS (Reported) Sertraline HCl (Zoloft) 25 Mg Tablet 25 MG PO DAILY (Reported) As needed Acetaminophen (Acetaminophen) 325 Mg Tablet 650 MG PO Q4H PRN PRN Pain/Fever ( Reported) Acetaminophen (Acetaminophen) 325 Mg Capsule 650 MG UT Q4H PRN PRN For Constipation (Reported) Bisacodyl (Dulcolax Rectal) 10 Mg Supp.rect 10 MG RC DAILY PRN PRN For Constipation (Reported) Magnesium Hydroxide (Milk of Magnesia) 400 Mg/5 Ml Oral.susp 30 ML PO DAILY PRN PRN For Constipation (Reported) Followup Plan Disposition: Discharged to [facility] Follow-up plan Antibiotics will be continued via intravenous routine for 3 additional days Follow up liver testing in 2 weeks to ensure improvement. Talk to you primary care physician (Dr. Sahni) about restarting your statin medications once antibiotic is complete. Discharge Diet: No restrictions Discharge Activity: No restrictions Follow-up Provider: Bora Mcdowell MD Follow-up with PCP in: 1 week Time spent 40 minutes copies to: Bora Mcdowell MD, Benjamin P DO Jan 21, 2017 10:15
--- NOTE | 2017-01-21 10:19 | PCM.DIMED ---
Discharge Instructions Date of Service Jan 21, 2017 Dates of Hospitalization Jan 12, 2017 at 11:20 Discharge Diagnosis Discharge Diagnosis # Acute transaminitis. Not present on admission. Improving # Acute hypernatremia, not present on admission. # Acute ESBL E. Coli, present on admission. # Acute toxic encephalopathy. Present on admission. Resolved # Possible fluid overload, acute, not present on admission. Seems resolved # Probable aspiration pneumonia, POA AND ACTIVE # Acute pyelonephritis, present on admission. # History of hypertension. # Remote traumatic brain injury, POA and stable. Diet Discharge Diet: No restrictions Activity Discharge Activity: No restrictions Patient Instructions Follow-up plan Antibiotics will be continued via intravenous routine for 3 additional days Follow up liver testing in 2 weeks to ensure improvement. Talk to you primary care physician (Dr. Sahni) about restarting your statin medications once antibiotic is complete. Follow-up Provider: Bora Mcdowell MD Follow-up with PCP in: 1 week Kg Angulo DO Jan 21, 2017 10:19
--- NOTE | 2017-01-21 11:48 | NUR ---
PRISON TRANSFER : Faxed orders to Shyla Garcia flight operation coordinator at [facility] and place copy in the chart, patient is being transported via [facility] garbage pick up worker at 1330. Updated RAYMOND, ZARA and [facility]
--- NOTE | 2017-01-21 12:06 | NUR ---
Social Work-discharge: Data:EMR reviewed. Pt is on day 9 of hospitalization for sepsis per H&P. Pt is medically stable for discharge. Pt resides at [facility] and will be returning there. UR specialist spoke with Shyla at [facility] who confirms they are able to accept pt back today and can manage the IV abx. UR specialist arranged transport for 1330. SW updated pt's sister via phone and explained that SW cannot guarantee that insurance will cover the cost of transport, sister agreeable to proceed. RN,UC,pt/family, and [facility] all updated and agreeable to plan. Assessment:pt who would benefit from SNF. Plan:Pt to discharge back to [facility] today via BLS at 1330. [facility] to continue the IV abx. RN,UC,pt/family, and [facility] all updated and agreeable to plan. RAYMOND Burch
--- NOTE | 2017-01-21 13:43 | NUR ---
Discharge Gave shift report to Yaneth at [facility]. Per MD pt left with IV to continue abx at [facility]. Pt left with EMS no s/s of distress
--- NOTE | 2017-01-21 14:01 | NUR ---
LATE NOTE : Faxed orders to Cheryl [facility] and arranged BLS transport via [facility] pick was at 1330. Updated RAYMOND ZUÑIGA AND Cheryl Gilbert
== END 2017-01-21 13:43 | DRG 871 ==
LOC: SED 06:05 → MPC 11:20 → PCC 12:20 → MPC 01-15 22:54
PROVIDERS: ADMIT Hospitalist; ATTEND Hospitalist
DX: A41.9 Sepsis, unspecified organism (principal); J69.0 Pneumonitis due to inhalation of food and vomit; G92 Toxic encephalopathy; N10 Acute pyelonephritis; G81.94 Hemiplegia, unspecified affecting left nondominant side; E87.0 Hyperosmolality and hypernatremia; Z87.820 Personal history of traumatic brain injury; R13.0 Aphagia; B96.29 Other Escherichia coli [E. coli] as the cause of diseases classified elsewhere; Z16.12 Extended spectrum beta lactamase (ESBL) resistance; I10 Essential (primary) hypertension; E78.5 Hyperlipidemia, unspecified; Z87.891 Personal history of nicotine dependence; Z66 Do not resuscitate